=== PATIENT | male | born 1935 | race Caucasian/White ===

== ENCOUNTER 2023-07-14 13:42 | Inpatient (IN) | payer MEDICARE ==
[2023-07-14] MEDS ORDERED: SODIUM CHLORIDE 0.9% 1,000 ML IV STA ×2 (14:22→15:56)
[2023-07-14] MEDS ORDERED: amLODIPine 5 MG TAB PO STA (14:23)
--- NOTE | 2023-07-14 14:25 | ED ---
General Adult HPI - General Chief complaint: Weakness Stated complaint: Weakness Time Seen by Provider: 07/14/23 14:04 Source: patient, RN/MD, RN notes reviewed Mode of arrival: EMS Limitations: altered mental status - History of Present Illness Initial comments: Patient is a pleasant 87-year-old male presenting to the emergency department with weakness. Patient has been becoming more weak over the past several weeks, especially the past couple of days. Patient is no longer able to ambulate or even stand with assistance. Patient has been with decreased oral intake and decrease responsiveness. Patient was at a different emergency department a c ouple of days ago and had high blood pressure however was discharged. Review of Systems ROS Statement: Those systems with pertinent positive or pertinent negative responses have been documented in the HPI. ROS Other: All systems not noted in ROS Statement are negative. Constitutional: Denies: fever Eyes: Denies: eye pain Endocrine: Reports: fatigue Gastrointestinal: Denies: abdominal pain Neurological: Reports: weakness. Denies: headache Past Medical History Past Medical History: No Reported History History of Any Multi-Drug Resistant Organisms: None Reported Past Surgical History: No Surgical Hx Reported Past Psychological History: No Psychological Hx Reported Smoking Status: Unknown if ever smoked Past Alcohol Use History: None Reported Past Drug Use History: None Reported General Exam Limitations: altered mental status General appearance: alert, in no apparent distress Head exam: Present: atraumatic Eye exam: Present: normal appearance ENT exam: Present: mucous membranes dry Neck exam: Present: normal inspection Respiratory exam: Present: normal lung sounds bilaterally Cardiovascular Exam: Present: regular rate, normal rhythm GI/Abdominal exam: Present: soft. Absent: tenderness Extremities exam: Present: pedal edema. Absent: calf tenderness Neurological exam: Present: alert Expanded Neurological exam: Present: protecting the airway Patient oriented to: Present: person Motor strength exam: RUE: 5, LUE: 5, RLE: 3, LLE: 3 Eye Response: (4) open spontaneously Motor Response: (6) obeys commands Verbal Response: (4) confused conversation Psychiatric exam: Present: flat affect Skin exam: Present: other (Erythema forehead which family states is related to skin cancer) Course Vital Signs 07/14/23 07/14/23 13:57 14:56 Temperature 98.1 F Pulse Rate 84 79 Respiratory 18 18 Rate Blood Pressure 205/107 190/90 O2 Sat by Pulse 97 99 Oximetry EKG Findings - EKG Results: EKG: interpreted by ERMD (Right axis. Q waves V1. Nonspecific T waves.), sinus rhythm Medical Decision Making - Medical Decision Making Was pt. sent in by a medical professional or institution (, SHANNON, EXCHANGE CLERK, urgent care, hospital, or correction...) When possible be specific @ -Patient was sent in by Dr. Bernstein Did you speak to anyone other than the patient for history (EMS, parent, family, police, friend...)? What history was obtained from this source @ -Family is present and helps provide history as patient is a poor historian Did you review nursing and triage notes (agree or disagree)? Why? @ -I reviewed and agree with nursing and triage notes Were old charts reviewed (outside hosp., previous admission, EMS record, old EKG, old radiological studies, urgent care reports/EKG's, correction records)? Report findings @ -No old charts were reviewed Differential Diagnosis (chest pain, altered mental status, abdominal pain women, abdominal pain men, vaginal bleeding, weakness, fever, dyspnea, syncope, headache, dizziness, GI bleed, back pain, seizure, CVA, palpatations, mental health, musculoskeletal)? @ -Differential Weakness: Hypoglycemia, shock, sepsis, hyponatremia, anemia, infection, PA, ETOH, adverse medicine reaction, overdose, stroke, this is not meant to be an all-inclusive list. EKG interpreted by me (3pts min.). @ -As above X-rays interpreted by me (1pt min.). @ -Chest x-ray shows postoperative changes. No acute process CT interpreted by me (1pt min.). @ -CT brain with atrophy U/S interpreted by me (1pt. min.). @ -None done What testing was considered but not performed or refused? (CT, X-rays, U/S, labs)? Why? @ -None What meds were considered but not given or refused? Why? @ -None Did you discuss the management of the patient with other professionals (maranda clifton i.e. , SHANNON, EXCHANGE CLERK, lab, RT, psych nurse, social service coordinator, snow groomer, teacher, electorate officer, continuous pillowcase cutter)? Give summary @ -Case was discussed with Dr. Salazar, who will admit, Dr. Bernstein Was smoking cessation discussed for >3mins.? @ -No Was critical care preformed (if so, how long)? @ -No Were there social determinants of health that impacted care today? How? (Homelessness, low income, unemployed, alcoholism, drug addiction, transportation, low edu. Level, literacy, decrease access to med. care, senior living, rehab)? @ -No Was there de-escalation of care discussed even if they declined (Discuss DNR or withdrawal of care, Hospice)? DNR status @ -No What co-morbidities impacted this encounter? (DM, HTN, Smoking, COPD, CAD, Cancer, CVA, ARF, Chemo, Hep., AIDS, mental health diagnosis, sleep apnea, morbid obesity)? @ -None Was patient admitted / discharged? Hospital course, mention meds given and route, prescriptions, significant lab abnormalities, going to OR and other pertinent info. @ -Patient and family are made aware of plan. Patient will be admitted with IV fluids. Admission orders written. Undiagnosed new problem with uncertain prognosis? @ -No Drug Therapy requiring intensive monitoring for toxicity (Heparin, Nitro, Insulin, Cardizem)? @ -No Were any procedures done? @ -No Diagnosis/symptom? @ -Weakness, dehydration Acute, or Chronic, or Acute on Chronic? @ -Acute, acute Uncomplicated (without systemic symptoms) or Complicated (systemic symptoms)? @ -default Side effects of treatment? @ -No Exacerbation, Progression, or Severe Exacerbation? @ -No Poses a threat to life or bodily function? How? (Chest pain, USA, PA, pneumonia, PE, COPD, DKA, ARF, appy, cholecystitis, CVA, Diverticulitis, Homicidal, Suicidal, threat to staff... and all critical care pts) @ -No - Lab Data Result diagrams: 07/14/23 14:42 07/14/23 14:42 Lab Results 07/14/23 07/14/23 07/14/23 Range/Units 14:42 14:42 14:42 WBC 10.0 (3.8-10.6) k/uL RBC 4.08 L (4.30-5.90) m/uL Hgb 13.7 (13.0-17.5) gm/dL Hct 40.1 (39.0-53.0) % MCV 98.4 (80.0-100.0) fL MCH 33.7 (25.0-35.0) pg MCHC 34.2 (31.0-37.0) g/dL RDW 12.4 (11.5-15.5) % Plt Count 180 (150-450) k/uL MPV 8.4 Neutrophils % 83 % Lymphocytes % 9 % Monocytes % 7 % Eosinophils % 1 % Basophils % 0 % Neutrophils # 8.2 H (1.3-7.7) k/uL Lymphocytes # 0.9 L (1.0-4.8) k/uL Monocytes # 0.7 (0-1.0) k/uL Eosinophils # 0.1 (0-0.7) k/uL Basophils # 0.0 (0-0.2) k/uL PT 10.6 (10.0-12.5) sec INR 1.0 (<1.2) APTT 25.5 (22.0-30.0) sec Sodium 139 (137-145) mmol/L Potassium 3.9 (3.5-5.1) mmol/L Chloride 102 (98-107) mmol/L Carbon Dioxide 22 (22-30) mmol/L Anion Gap 15 mmol/L BUN 28 H (9-20) mg/dL Creatinine 1.05 (0.66-1.25) mg/dL Est GFR (CKD-EPI)AfAm 73 (>60 ml/min/1.73 sqM) Est GFR (CKD-EPI)NonAf 64 (>60 ml/min/1.73 sqM) Glucose 307 H (74-99) mg/dL Calcium 9.6 (8.4-10.2) mg/dL Magnesium 1.6 (1.6-2.3) mg/dL Total Bilirubin 0.9 (0.2-1.3) mg/dL AST 28 (17-59) U/L ALT 19 (4-49) U/L Alkaline Phosphatase 107 (38-126) U/L Troponin I (0.000-0.034) ng/mL Total Protein 7.7 (6.3-8.2) g/dL Albumin 4.4 (3.5-5.0) g/dL TSH 3.100 (0.465-4.680) mIU/L Free T4 1.29 (0.78-2.19) ng/dL Free T3 pg/mL 3.2 (2.8-5.3) pg/ml 07/14/23 Range/Units 14:42 WBC (3.8-10.6) k/uL RBC (4.30-5.90) m/uL Hgb (13.0-17.5) gm/dL Hct (39.0-53.0) % MCV (80.0-100.0) fL MCH (25.0-35.0) pg MCHC (31.0-37.0) g/dL RDW (11.5-15.5) % Plt Count (150-450) k/uL MPV Neutrophils % % Lymphocytes % % Monocytes % % Eosinophils % % Basophils % % Neutrophils # (1.3-7.7) k/uL Lymphocytes # (1.0-4.8) k/uL Monocytes # (0-1.0) k/uL Eosinophils # (0-0.7) k/uL Basophils # (0-0.2) k/uL PT (10.0-12.5) sec INR (<1.2) APTT (22.0-30.0) sec Sodium (137-145) mmol/L Potassium (3.5-5.1) mmol/L Chloride (98-107) mmol/L Carbon Dioxide (22-30) mmol/L Anion Gap mmol/L BUN (9-20) mg/dL Creatinine (0.66-1.25) mg/dL Est GFR (CKD-EPI)AfAm (>60 ml/min/1.73 sqM) Est GFR (CKD-EPI)NonAf (>60 ml/min/1.73 sqM) Glucose (74-99) mg/dL Calcium (8.4-10.2) mg/dL Magnesium (1.6-2.3) mg/dL Total Bilirubin (0.2-1.3) mg/dL AST (17-59) U/L ALT (4-49) U/L Alkaline Phosphatase (38-126) U/L Troponin I 0.045 H* (0.000-0.034) ng/mL Total Protein (6.3-8.2) g/dL Albumin (3.5-5.0) g/dL TSH (0.465-4.680) mIU/L Free T4 (0.78-2.19) ng/dL Free T3 pg/mL (2.8-5.3) pg/ml Disposition Clinical Impression: Dehydration Disposition: ADMITTED IP TO THIS HOSP Is patient prescribed a controlled substance at d/c from ED?: No Referrals: None,Stated [REFERRING] - 1-2 days Time of Disposition: 16:47
[2023-07-14 14:49] LABS: Basophils % (A) 0 %; Eosinophils # (A) 0.1 k/uL (0-0.7); Eosinophils % (A) 1 %; HCT 40.1 % (39.0-53.0); HGB 13.7 gm/dL (13.0-17.5); Lymphocytes # (A) 0.9 k/uL (1.0-4.8); Lymphocytes % (A) 9 %; MCH 33.7 pg (25.0-35.0); MCHC 34.2 g/dL (31.0-37.0); MCV 98.4 fL (80.0-100.0); Mean Platelet Volume 8.4; Monocytes # (A) 0.7 k/uL (0-1.0); Monocytes % (A) 7 %; Neutrophils # (A) 8.2 k/uL (1.3-7.7); Neutrophils % (A) 83 %; Platelet Count 180 k/uL (150-450); RBC 4.08 m/uL (4.30-5.90); RDW 12.4 % (11.5-15.5)
[2023-07-14 14:59] LABS: ALT 19 U/L (4-49); AST 28 U/L (17-59); African American GFR (CKD) 73 (>60 ml/min/1.73 sqM); Albumin 4.4 g/dL (3.5-5.0); Alkaline Phosphatase 107 U/L (38-126); Anion Gap 15 mmol/L; Blood Urea Nitrogen 28 mg/dL (9-20); Calcium 9.6 mg/dL (8.4-10.2); Carbon Dioxide 22 mmol/L (22-30); Chloride 102 mmol/L (98-107); Glucose 307 mg/dL (74-99); Magnesium 1.6 mg/dL (1.6-2.3); Non-African American GFR(CKD) 64 (>60 ml/min/1.73 sqM); Partial Thromboplastin Time 25.5 sec (22.0-30.0); Potassium 3.9 mmol/L (3.5-5.1); Prothrombin Time 10.6 sec (10.0-12.5); Sodium 139 mmol/L (137-145); Total Bilirubin 0.9 mg/dL (0.2-1.3); Total Protein 7.7 g/dL (6.3-8.2)
[2023-07-14 15:16] LABS: T4, Free (Free Thyroxine) 1.29 ng/dL (0.78-2.19)
[2023-07-14] MEDS ORDERED: DEXTROSE 50% SYRINGE 50 ML IVP PRN ×2 (15:27)
--- NOTE | 2023-07-14 15:48 | XR ---
EXAMINATION TYPE: XR chest 2V DATE OF EXAM: 07/14/2023 COMPARISON: 07/14/2023 HISTORY: 87-year-old male with weakness, confusion, altered mental status TECHNIQUE: AP and lateral views FINDINGS: Median sternotomy wires and post-CABG clips. Heart borderline enlarged. No consolidation or pleural e ffusion. IMPRESSION: Borderline cardiomegaly. Post-CABG changes. No definite acute process.
--- NOTE | 2023-07-14 16:04 | CT ---
EXAMINATION TYPE: CT brain wo con DATE OF EXAM: 07/14/2023 COMPARISON: None HISTORY: ams CT DLP: 1114.6 mGycm Automated exposure control for dose reduction was used. FINDINGS: Ventricles, basal cisterns and sulci over convexities are moderately enlarged consistent with moderat e generalized atrophy. There is moderate diffuse decreased density in the periventricular white matte r consistent with chronic ischemic white matter demyelination. There is no mass effect or shift of midline structures. There is no acute intra or extra-axial hemorrhage. The posterior fossa including the brainstem, fourth ventricle and cerebellar pontine angles are gross ly normal. The intraorbital contents appear normal and symmetric. Visualized paranasal sinuses and mastoid air cells are well aerated. The calvarium is intact. IMPRESSION: 1. No acute bleed or mass effect. 2. Moderate generalized atrophy and moderate chronic ischemic white matter demyelination.
[2023-07-14] MEDS: hydrALAZINE HCL 20 MG/ML 1 ML VIAL IVP PRN (16:12)
[2023-07-14] MEDS ORDERED: NALOXONE 0.4 MG/ML 1 ML VIAL IV PRN (16:49)
[2023-07-14] MEDS: INSULIN ASPART (NovoLOG) 100 UNIT/ML VIAL SQ SCH ×3 (16:57→20:46)
[2023-07-14] MEDS: SODIUM CHLORIDE 0.9% 1,000 ML IV SCH (16:58)
[2023-07-14 17:08] LABS: Appearance,Urine Clear (Clear); Bilirubin,Urine Negative (Negative); Blood,Urine Small (Negative); Color,Urine Colorless; Glucose,Urine (UA) 2+ (Negative); Ketones,Urine Negative (Negative); Leukocyte Esterase,Urine Negative (Negative); Nitrite,Urine Negative (Negative); Protein,Urine 1+ (Negative); RBC,Urine 5 /hpf (0-5); Specific Gravity,Urine 1.012 (1.001-1.035); Urobilinogen,Urine <2.0 mg/dL (<2.0); WBC,Urine 2 /hpf (0-5)
[2023-07-14 17:09] LABS: Glucose,Whole Blood 185 mg/dL (70-110)
--- NOTE | 2023-07-14 19:22 | US ---
EXAMINATION TYPE: US carotid duplex BILAT DATE OF EXAM: 07/14/2023 COMPARISON: NONE CLINICAL INDICATION: Male, 87 years old with history of stroke; Patient not able to get words out, he adaches, and tremors TECHNIQUE: Carotid duplex ultrasound examination. Indirect Doppler criteria was utilized. FINDINGS: EXAM MEASUREMENTS: RIGHT: Peak Systolic Velocity (PSV) cm/sec ----- Right CCA: 60 ----- Right ICA: 82 ----- Right ECA: 155 ICA/CCA ratio: 1.4 RIGHT: End Diastole cm/sec ----- Right CCA: 7 ----- Right ICA: 9 ----- Right ECA: 16 LEFT: Peak Systolic Velocity (PSV) cm/sec ----- Left CCA: 60 ----- Left ICA: 83 ----- Left ECA: 88 ICA/CCA ratio: 1.4 LEFT: End Diastole cm/sec ----- Left CCA: 11 ----- Left ICA: 83 ----- Left ECA: 7 VERTEBRALS (direction of flow): Right Vertebral: Antegrade Left Vertebral: Antegrade Rhythm: Normal MANAGER SALES NOTES: Some calcified plaque at bilateral bulbs, increased velocity within the right ECA, and no intimal thickening noted IMPRESSION: 1. Calcified plaquing within the carotid bulbs. No significant flow-limiting stenosis bilateral inter nal carotid arteries. Criteria for Assigning % of Stenosis / Diameter reduction (Estimation based on the indirect measurements of the internal carotid artery velocities (ICA PSV). 1. Normal (no stenosis)=ICA PSV < 125 cm/s: ratio < 2.0: ICA EDV<40 cm/s. 2. Less than 50% stenosis=ICA PSV < 125 cm/s: ratio < 2.0: ICA EDV<40 cm/s. 3. 50 to 69% stenosis=ICA PSV of 125 to 230 cm/s: ration 2.0 ? 4.0: ICA EDV 40-100 cm/s. 4. Greater than 70% stenosis to near occlusion= ICA PSV > 230 cm/s: ratio > 4.0: ICA EDV > 100 cm/s. 5. Near occlusion= ICA PSV velocities may be low or undetectable: variable ratio and ICA EDV. 6. Total occlusion=unable to detect flow.
[2023-07-14 20:46] LABS: Glucose,Whole Blood 132 mg/dL (70-110)
[2023-07-14] MEDS: HEPARIN SODIUM,PORCINE 5,000 UNIT/ML 1 ML VIAL SQ SCH (20:53)
[2023-07-14] MEDS: FAMOTIDINE 20 MG TAB PO SCH (20:53)
--- NOTE | 2023-07-14 23:05 | HP ---
HISTORY AND PHYSICAL CHIEF COMPLAINT: Weakness and confusion. HISTORY OF PRESENT ILLNESS: This is an 87-year-old gentleman with no significant past medical history, was being followed by Dr. Teixeira in the outpatient setting. The patient apparently according to the family. The patient had some weakness and confusion, and the patient was taken to [facility] a couple of days ago and blood pressure was found to be elevated, but the patient was sent back home. Currently, the patient continues to be confused and I discussed the case at length with Dr. Teixeira. The patient also had some leg swelling. The patient had multiple falls. The blood pressure was 151/90, and currently the blood pressure is 205/107. The patient was admitted for further evaluation and treatment. The patient is confused. The patient had some skin lesions, skin cancer, and unable to answer the questions. Most of the history is taken by discussion with the family at the bedside and as well as ER physician as well as Dr. Teixeira over the phone. There is no history of any fever, rigors, or chills. The patient also had some abdominal distention and the possibility of Nephrology and Urology consultation has been mentioned to them by the [facility] ER apparently. The basic labs showed normal creatinine, glucose 307. Troponin was found to be elevated at 0.045. PAST MEDICAL HISTORY: No history of any cardiorespiratory illness except skin cancer. MEDICATIONS: List is not available. ALLERGIES: List is not available. FAMILY HISTORY: No history of heart disease or strokes in the family. SOCIAL HISTORY: Could not be taken because of change in mental status. REVIEW OF SYSTEMS: Could not be taken because of change in mental status. PHYSICAL EXAMINATION: VITAL SIGNS: Pulse 84, blood pressure 205/107, respirations 18. HEENT: Conjunctivae normal. NECK: No jugular venous distention. CARDIOVASCULAR: S1, S2 muffled. RESPIRATIONS: Breath sounds diminished at the bases. A few scattered rhonchi and crackles. ABDOMEN: Soft, nontender. LEGS: No edema. NERVOUS SYSTEM: Diffusely weak. SKIN: Dry and some erythema also present. LABORATORY DATA: Reviewed. ASSESSMENT: 1. Change in mental status, for evaluation, rule out acute stroke, rule out metabolic encephalopathy or sepsis. 2. Accelerated hypertension and hypertensive urgency. 3. Troponin 0.045. 4. Diabetes mellitus, type 2 new onset. 5. Rule out dementia. 6. Gait dysfunction. 7. History of skin cancer. RECOMMENDATIONS AND DISCUSSION: This is an 87-year-old gentleman, who presented with multiple complex medical issues. At this time, I recommend to continue the current medication. I recommend baseline workup including CT of the brain. I will recommend blood pressure control, cultures. Monitor blood sugars closely. PT/OT evaluation, possible ECF rehab. I will also order a sedimentation rate and CRP. I will also recommend cardiology consultation, a 2D echo and full cardiac workup also. Discussed at length with family at the bedside. Further recommendations to follow. MMODL / IJN: [id number] / MICHAEL
[2023-07-15 06:54] LABS: Glucose,Whole Blood 111 mg/dL (70-110)
[2023-07-15] MEDS: INSULIN ASPART (NovoLOG) 100 UNIT/ML VIAL SQ SCH ×4 (07:10→20:23)
[2023-07-15] MEDS: hydrALAZINE HCL 20 MG/ML 1 ML VIAL IVP PRN (07:11)
[2023-07-15] MEDS: SODIUM CHLORIDE 0.9% 1,000 ML IV SCH ×2 (07:34→20:14)
[2023-07-15 08:39] LABS: ALT 14 U/L (4-49); AST 23 U/L (17-59); African American GFR (CKD) 73 (>60 ml/min/1.73 sqM); Albumin 3.9 g/dL (3.5-5.0); Alkaline Phosphatase 97 U/L (38-126); Anion Gap 15 mmol/L; Blood Urea Nitrogen 24 mg/dL (9-20); Calcium 9.4 mg/dL (8.4-10.2); Carbon Dioxide 23 mmol/L (22-30); Chloride 104 mmol/L (98-107); Glucose 127 mg/dL (74-99); Non-African American GFR(CKD) 64 (>60 ml/min/1.73 sqM); Potassium 3.5 mmol/L (3.5-5.1); Sodium 142 mmol/L (137-145); Total Bilirubin 0.9 mg/dL (0.2-1.3); Total Protein 7.1 g/dL (6.3-8.2)
[2023-07-15 08:46] LABS: Basophils % (A) 0 %; Eosinophils # (A) 0.1 k/uL (0-0.7); Eosinophils % (A) 1 %; HCT 39.4 % (39.0-53.0); HGB 13.1 gm/dL (13.0-17.5); Lymphocytes # (A) 1.5 k/uL (1.0-4.8); Lymphocytes % (A) 17 %; MCHC 33.4 g/dL (31.0-37.0); MCV 98.7 fL (80.0-100.0); Mean Platelet Volume 9.3; Monocytes # (A) 0.8 k/uL (0-1.0); Monocytes % (A) 9 %; Neutrophils # (A) 6.6 k/uL (1.3-7.7); Neutrophils % (A) 72 %; Platelet Count 153 k/uL (150-450); RBC 3.99 m/uL (4.30-5.90); RDW 12.7 % (11.5-15.5); WBC 9.2 k/uL (3.8-10.6)
[2023-07-15] MEDS: ASPIRIN 81 MG PO SCH (10:09)
[2023-07-15] MEDS: LOSARTAN 50 MG TAB PO SCH (10:10)
[2023-07-15] MEDS: amLODIPine 5 MG TAB PO SCH (10:10)
[2023-07-15] MEDS: atenoloL 50 MG TAB PO SCH (10:10)
[2023-07-15] MEDS: HEPARIN SODIUM,PORCINE 5,000 UNIT/ML 1 ML VIAL SQ SCH ×2 (10:10→20:13)
[2023-07-15 11:21] LABS: Glucose,Whole Blood 286 mg/dL (70-110)
--- NOTE | 2023-07-15 11:32 | P.CRDCN ---
History of Present Illness History of present illness: HISTORY OF PRESENT ILLNESS: This is a 87-year-old male with a past medical history significant for coronary artery disease with previous CABG, hypertension, and hyperlipidemia. Patient follows in the office with Dr. Tan. We have been asked to see the patient in consultation for abnormal troponins. Patient examined at the bedside. Patient is hard of hearing. Patient's family is at the bedside and providing majority of the history. They state the patient is usually independent and lives alone in ambient with a walker. Daughter states over the past few weeks he has significantly deteriorated. She reports that he has had significant weakness and has been unable to ambulate at home. She also reports that he has not been eating well at home. The patient currently denies any chest pain or pressure. He denies any shortness of breath. Patient's family states they're looking into subacute rehab at the time of discharge. Patient's blood pressure was s ignificantly elevated upon admission with a systolic around 200. The patient's daughter states he was recently hospitalized at [facility] and was hypertensive at that time but no changes were made to his medication regimen. Blood pressure this morning remains elevated with a recent reading of 170/96. His home and hypertensive medications have not been resumed at the time of examination. However, he has been started on amlodipine per primary medicine. * EKG reveals sinus mechanism with nonspecific ST-T wave changes. * Chest xray borderline cardiomegaly. Post CABG changes. No definite acute process. * Laboratory data: Troponin 0.045. 0.048. 0.051. * Current home cardiac medications include simvastatin 40 mg at night, aspirin 81 mg daily, atenolol 50 mg daily, losartan 100 mg daily * Most recent echocardiogram obtained in April 2023 revealed ejection fraction 55%, trace aortic regurgitation, moderate mitral regurgitation, [id number] tricuspid regurgitation REVIEW OF SYSTEMS: At the time of my exam: CONSTITUTIONAL: Denies fever or chills. HEENT: Denies blurred vision, vision changes, or eye pain. Denies hemoptysis CARDIOVASCULAR: Denies chest pain. Denies orthopnea. Denies PND. Denies palpitations RESPIRATORY: Denies shortness of breath. GASTROINTESTINAL: Denies abdominal pain. Denies nausea or vomiting. HEMATOLOGIC: Denies bleeding disorders. GENITOURINARY: Denies any blood in urine. SKIN: Denies pruitis. Denies rash. PHYSICAL EXAM: VITAL SIGNS: Reviewed. GENERAL: Well-developed in no acute distress. HEENT: Head is normocephalic. Pupils are equal, round. Sclerae anicteric. Mucous membranes of the mouth are moist. Neck supple. No JVD or thyromegaly LUNGS: Respirations even and unlabored. Lungs essentially clear to auscultation bilaterally. HEART: Regular rate and rhythm. S1 and S2 heard. ABDOMEN: Soft. Nondistended. Nontender. EXTREMITIES: Normal range of motion. No clubbing or cyanosis. Peripheral pulses intact. No lower extremity edema NEUROLOGIC: Awake and alert. Oriented x 3. ASSESSMENT: Generalized weakness and debility Decreased oral intake Hypertensive urgency, improving Abnormal troponins, flat, likely secondary to uncontrolled blood pressure, no evidence of acute coronary syndrome Coronary artery disease with previous CABG History of hypertension History of hyperlipidemia PLAN: An acute coronary event has been ruled out Resume home cardiac medications including aspirin, atenolol, and losartan Patient has been started on amlodipine per primary medicine Continue to monitor blood pressure Obtain 2-D echo to assess cardiac structure and function Further recommendations pending patient's course Nurse practitioner note has been reviewed by physician. Signing provider agrees with the documented findings, assessment, and plan of care. Past Medical History Past Medical History: No Reported History History of Any Multi-Drug Resistant Organisms: None Reported Past Surgical History: No Surgical Hx Reported Past Psychological History: No Psychological Hx Reported Smoking Status: Never smoker, Unknown if ever smoked Past Alcohol Use History: None Reported Past Drug Use History: None Reported - Past Family History Mother Family Medical History: Congestive Heart Failure (CHF) Additional Family Medical History / Comment(s): CABG Sister(s) Family Medical History: Cancer, Congestive Heart Failure (CHF) Father Family Medical History: Myocardial Infarction (NE) Additional Family Medical History / Comment(s): of NE Medications and Allergies Home Medications Medication Instructions Recorded Confirmed Type Aspirin EC [Ecotrin Low Dose] 81 mg PO DAILY 07/14/23 07/14/23 History Bifidobacterium Infantis [Align] 4 mg PO DAILY 07/14/23 07/14/23 History Cephalexin [Keflex] 500 mg PO BID 07/14/23 07/14/23 History Famotidine 20 mg PO BID 07/14/23 07/14/23 History Losartan Potassium 100 mg PO DAILY 07/14/23 07/14/23 History Primidone [Mysoline] 100 mg PO DAILY 07/14/23 07/14/23 History Psyllium Husk [Fiber Capsule] 0.4 gm PO HS 07/14/23 07/14/23 History Simvastatin [Zocor] 40 mg PO HS 07/14/23 07/14/23 History atenoloL [Tenormin] 50 mg PO DAILY 07/14/23 07/14/23 History fluorouraciL [Efudex] 1 applic TOPICAL BID 07/14/23 07/14/23 History Allergies Allergy/AdvReac Type Severity Reaction Status Date / Time No Known Allergies Allergy Verified 07/14/23 18:23 Physical Exam Vitals: Vital Signs Temp Pulse Pulse Resp BP BP Pulse Ox 07/15/23 08:07 78 18 170/96 98 07/15/23 04:00 97.2 F L 81 16 159/79 94 L 07/15/23 02:00 68 16 07/15/23 00:00 97.8 F 68 16 136/77 95 07/14/23 20:00 98.1 F 74 18 160/85 99 07/14/23 16:55 82 18 159/88 94 L 07/14/23 16:50 153/95 07/14/23 14:56 79 18 190/90 99 07/14/23 13:57 98.1 F 84 18 205/107 97 Intake and Output 07/14/23 07/15/23 07/15/23 22:59 06:59 14:59 Other: Voiding Method Incontinent Incontinent # Voids 2 1 Weight 90.718 kg Results 07/15/23 07:49 07/15/23 07:49 Cardiac Enzymes 07/14/23 07/14/23 07/14/23 Range/Units 14:42 14:42 18:27 AST 28 (17-59) U/L Troponin I 0.045 H* 0.048 H* (0.000-0.034) ng/mL 07/14/23 07/15/23 Range/Units 20:55 07:49 AST 23 (17-59) U/L Troponin I 0.051 H* (0.000-0.034) ng/mL Coagulation 07/14/23 Range/Units 14:42 PT 10.6 (10.0-12.5) sec APTT 25.5 (22.0-30.0) sec CBC 07/14/23 07/15/23 Range/Units 14:42 07:49 WBC 10.0 9.2 (3.8-10.6) k/uL RBC 4.08 L 3.99 L (4.30-5.90) m/uL Hgb 13.7 13.1 (13.0-17.5) gm/dL Hct 40.1 39.4 (39.0-53.0) % Plt Count 180 153 (150-450) k/uL Comprehensive Metabolic Panel 07/14/23 07/15/23 Range/Units 14:42 07:49 Sodium 139 142 (137-145) mmol/L Potassium 3.9 3.5 (3.5-5.1) mmol/L Chloride 102 104 (98-107) mmol/L Carbon Dioxide 22 23 (22-30) mmol/L BUN 28 H 24 H (9-20) mg/dL Creatinine 1.05 1.05 (0.66-1.25) mg/dL Glucose 307 H 127 H (74-99) mg/dL Calcium 9.6 9.4 (8.4-10.2) mg/dL AST 28 23 (17-59) U/L ALT 19 14 (4-49) U/L Alkaline Phosphatase 107 97 (38-126) U/L Total Protein 7.7 7.1 (6.3-8.2) g/dL Albumin 4.4 3.9 (3.5-5.0) g/dL Current Medications Generic Name Dose Route Start Last Admin Trade Name Omarq PRN Reason Stop Dose Admin Amlodipine Besylate 5 mg 07/15/23 09:00 07/15/23 10:10 Amlodipine 5 Mg Tab PO 5 mg DAILY ERNESTO Administration Aspirin 81 mg 07/15/23 09:30 07/15/23 10:09 Aspirin 81 Mg PO 81 mg DAILY ERNESTO Administration Atenolol 50 mg 07/15/23 09:30 07/15/23 10:10 Atenolol 50 Mg Tab PO 50 mg DAILY ERNESTO Administration Atorvastatin Calcium 20 mg 07/15/23 21:00 Atorvastatin 20 Mg Tab PO HS ERNESTO Dextrose/Water 25 ml 07/14/23 15:27 Dextrose 50% Syringe 50 Ml IVP PER PROTOCOL PRN Hypoglycemia Protocol Dextrose/Water 50 ml 07/14/23 15:27 Dextrose 50% Syringe 50 Ml IVP PER PROTOCOL PRN Hypoglycemia Protocol Famotidine 20 mg 07/14/23 21:00 07/14/23 20:53 Famotidine 20 Mg Tab PO 20 mg HS ERNESTO Administration Heparin Sodium (Porcine) 5,000 unit 07/14/23 21:00 07/15/23 10:10 Heparin Sodium,Porcine 5,000 Unit/Ml 1 Ml Vial SQ 5,000 unit Q12HR ERNESTO Administration Sodium Chloride 1,000 mls @ 75 mls/hr 07/14/23 17:00 07/15/23 07:34 Saline 0.9% IV 75 mls/hr .[id number] ERNESTO Administration Insulin Aspart 0 unit 07/14/23 17:30 07/15/23 07:10 Insulin Aspart (Novolog) 100 Unit/Ml Vial SQ Not Given ACHS ERNESTO Protocol Losartan Potassium 100 mg 07/15/23 09:30 07/15/23 10:10 Losartan 50 Mg Tab PO 100 mg DAILY ERNESTO Administration Naloxone HCl 0.2 mg 07/14/23 16:49 Naloxone 0.4 Mg/Ml 1 Ml Vial IV Q2M PRN Opioid Reversal Intake and Output 07/14/23 07/15/23 07/15/23 22:59 06:59 14:59 Other: Voiding Method Incontinent Incontinent # Voids 2 1 Weight 90.718 kg 07/15/23 07:49 07/15/23 07:49
[2023-07-15 13:36] VITALS: BMI 39.0
[2023-07-15 16:17] LABS: Glucose,Whole Blood 200 mg/dL (70-110)
[2023-07-15] MEDS: LIDOCAINE 4% PATCH TOPICAL SCH (17:07)
[2023-07-15] MEDS: PRIMIDONE 50 MG TAB PO SCH (17:07)
[2023-07-15] MEDS: NON FORMULARY DRUG (Fluorouracil [Efudex] 40 GM Cream..G.) TOPICAL SCH (17:13)
--- NOTE | 2023-07-15 20:08 | PN ---
PROGRESS NOTE DATE OF SERVICE: 07/15/2023 SUBJECTIVE: This 87-year-old gentleman admitted with significant change in mental status and confusion, also had hypertensive encephalopathy. Blood glucose also found to be elevated, troponin 0.051. The patient is slightly more oriented. Today, the patient had multiple workups including carotid Doppler, which showed calcified plaques. CT of the brain, atrophy and chest x-ray was borderline. The patient is being closely monitored. PAST MEDICAL HISTORY: Could not be taken as the patient is confused. REVIEW OF SYSTEMS: Could not be taken as the patient is confused. CURRENT MEDICATIONS: Reviewed include Tenormin, dose and rest of medications noted. PHYSICAL EXAMINATION: VITAL SIGNS: Pulse 81, blood pressure 159/70, and respirations 16. HEENT: Conjunctivae normal. NECK: No jugular venous distention CARDIOVASCULAR: S1, S2 muffled. RESPIRATIONS: Diminished at the bases. ABDOMEN: Soft. NERVOUS SYSTEM: Diffusely weak. LABORATORY DATA: Noted. ASSESSMENT: 1. Change in mental status and possibly acute encephalopathy and hypertensive encephalopathy. 2. Accelerated hypertension with hypertensive urgency. 3. Possible cellulitis. 4. Troponin 0.045. 5. Diabetes mellitus type 2, new onset. 6. Possible dementia. 7. Gait dysfunction. 8. History of skin cancer. RECOMMENDATION AND DISCUSSION: This 87-year-old gentleman presented with multiple complex medical issues, we will monitor the patient closely. I would recommend empiric antibiotics. Closely follow with Cardiology. I would also recommend Infectious Disease evaluation as well as the neurology evaluation also and we will continue to monitor. PT, OT evaluation and possible ECF rehab. Guarded prognosis. Further recommendations to follow. See orders for details. MMODL / IJN: [id number] /
[2023-07-15] MEDS: PSYLLIUM HUSK 100% 6 GM PACKET PO SCH (20:11)
[2023-07-15] MEDS: FAMOTIDINE 20 MG TAB PO SCH (20:11)
[2023-07-15] MEDS: ATORVASTATIN 20 MG TAB PO SCH (20:11)
[2023-07-15 20:16] LABS: Glucose,Whole Blood 120 mg/dL (70-110)
[2023-07-16] MEDS: NON FORMULARY DRUG (Fluorouracil [Efudex] 40 GM Cream..G.) TOPICAL SCH ×3 (01:49→21:22)
[2023-07-16 06:21] LABS: Glucose,Whole Blood 128 mg/dL (70-110)
[2023-07-16] MEDS: INSULIN ASPART (NovoLOG) 100 UNIT/ML VIAL SQ SCH ×4 (06:24→21:21)
--- NOTE | 2023-07-16 08:30 | P.PN ---
Subjective Progress Note Date: 07/16/23 Principal diagnosis: The patient is a pleasant 87-year-old gentleman with coronary artery disease and hypertension and dyslipidemia was admitted to the hospital was hypertension em ergency. He was seen and evaluated this morning. He continues to be hypertensive. Currently is on high-dose losartan which is maximum dose and also he is on atenolol. I'm going to add hydrocortisone to the current medical regimen his kidney function are within normal limits. Beside that he has been experiencing dysuria. I asked for a urology consult to rule out any obstructive uropathy and he might benefit from medications for that. No pain in the chest and no shortness of breath. He is experiencing mild headache likely secondary to hypertension. The examination is remarkable for distant heart sounds with clear breathing sounds bilaterally and no lower extremity edema noted Assessment Hypertension emergency Coronary artery disease Multiple comorbid conditions Plan Add hydrochlorothiazide to the current medical regimen Rule out obstructive uropathy Consider ruling out persistent hypertension if the pressure remains elevated Consider replacing atenolol with carvedilol as well Follow-up with the patient Objective - Vital Signs Vital signs: Vital Signs Temp 98.4 F 07/15/23 16:00 Pulse 77 07/16/23 04:18 Resp 18 07/16/23 04:18 BP 194/93 07/16/23 04:18 Pulse Ox 98 07/16/23 04:18 FiO2 Intake & Output 07/15/23 07/16/23 07/16/23 18:59 06:59 18:59 Output Total 500 Balance -500 Weight 90.718 kg Output: Urine 500 Other: Voiding Method Incontinent Incontinent # Voids 1 - Labs CBC & Chem 7: 07/15/23 07:49 07/15/23 07:49 Labs: Abnormal Lab Results - Last 24 Hours (Table) 07/15/23 07/15/23 07/15/23 Range/Units 07:49 07:49 11:19 RBC 3.99 L (4.30-5.90) m/uL BUN 24 H (9-20) mg/dL Glucose 127 H (74-99) mg/dL POC Glucose (mg/dL) 286 H (70-110) mg/dL 07/15/23 07/15/23 07/16/23 Range/Units 16:16 20:15 06:20 RBC (4.30-5.90) m/uL BUN (9-20) mg/dL Glucose (74-99) mg/dL POC Glucose (mg/dL) 200 H 120 H 128 H (70-110) mg/dL Microbiology - Last 24 Hours (Table) 07/14/23 16:15 Blood Culture - Preliminary Blood
[2023-07-16] MEDS ORDERED: ACETAMINOPHEN TAB 325 MG TAB PO PRN (08:58)
[2023-07-16] MEDS: PRIMIDONE 50 MG TAB PO SCH (09:58)
[2023-07-16] MEDS: atenoloL 50 MG TAB PO SCH (09:58)
[2023-07-16] MEDS: hydroCHLOROthiazide 25 MG TAB PO SCH (09:58)
[2023-07-16] MEDS: amLODIPine 5 MG TAB PO SCH (09:58)
[2023-07-16] MEDS: LACTOBACILLUS ACIDOPHILUS/PECT 1 EACH CAPSULE PO SCH (09:58)
[2023-07-16] MEDS: LOSARTAN 50 MG TAB PO SCH (09:58)
[2023-07-16] MEDS: ASPIRIN 81 MG PO SCH (09:58)
[2023-07-16] MEDS: HEPARIN SODIUM,PORCINE 5,000 UNIT/ML 1 ML VIAL SQ SCH ×2 (09:59→21:13)
[2023-07-16] MEDS: LIDOCAINE 4% PATCH TOPICAL SCH (09:59)
--- NOTE | 2023-07-16 10:09 | P.GSCN ---
History of Present Illness Consult date: 07/16/23 History of present illness: 87-year-old gentleman in the hospital for weakness. We are asked to see for difficulty urination and dysuria. The history is taken from both the daughter and the patient to. Patient states for about 3 weeks he has been having discomfort with urination. The patient according to the daughter has been having incontinence now for several weeks. He sees as his primary care but has not seen her as of late. There is been no previous history urinary tract problems. He has never seen a urologist before. He apparently was in the emergency room recently at [facility] for the dysuria. They didn't think he had an infection with cultures obtained. His urinalysis on admission does not look infected. He is not on any urologic medication. He is wearing a condom type catheter. Per the daughter the urine is lightening up consistent with rehydration. Review of Systems All systems: negative - Constitutional Denies fever, Denies weight loss - EENT Eyes: denies blurred vision Ears, nose, mouth and throat: Denies dysphagia - Cardiovascular Denies chest pain, Denies shortness of breath - Respiratory Denies cough, Denies 7 - Gastrointestinal Reports as per HPI - Genitourinary Denies dysuria, Denies hematuria - Integumentary Denies rash, Denies unusual bruising - Neurological Denies headaches, Denies syncope - Hematologic/Lymphatic Denies easy bleeding, Denies easy bruising Past Medical History Past Medical History: No Reported History History of Any Multi-Drug Resistant Organisms: None Reported Past Surgical History: No Surgical Hx Reported Past Psychological History: No Psychological Hx Reported Smoking Status: Never smoker, Unknown if ever smoked Past Alcohol Use History: None Reported Past Drug Use History: None Reported - Past Family History Mother Family Medical History: Congestive Heart Failure (CHF) Additional Family Medical History / Comment(s): CABG Sister(s) Family Medical History: Cancer, Congestive Heart Failure (CHF) Father Family Medical History: Myocardial Infarction ([place]) Additional Family Medical History / Comment(s): of [place] Medications and Allergies Home Medications Medication Instructions Recorded Confirmed Type Aspirin EC [Ecotrin Low Dose] 81 mg PO DAILY 07/14/23 07/14/23 History Bifidobacterium Infantis [Align] 4 mg PO DAILY 07/14/23 07/14/23 History Cephalexin [Keflex] 500 mg PO BID 07/14/23 07/14/23 History Famotidine 20 mg PO BID 07/14/23 07/14/23 History Losartan Potassium 100 mg PO DAILY 07/14/23 07/14/23 History Primidone [Mysoline] 100 mg PO DAILY 07/14/23 07/14/23 History Psyllium Husk [Fiber Capsule] 0.4 gm PO HS 07/14/23 07/14/23 History Simvastatin [Zocor] 40 mg PO HS 07/14/23 07/14/23 History atenoloL [Tenormin] 50 mg PO DAILY 07/14/23 07/14/23 History fluorouraciL [Efudex] 1 applic TOPICAL BID 07/14/23 07/14/23 History Allergies Allergy/AdvReac Type Severity Reaction Status Date / Time No Known Allergies Allergy Verified 07/14/23 18:23 Surgical - Exam Vital Signs Temp Pulse Resp BP Pulse Ox 98.1 F 84 18 205/107 97 07/14/23 13:57 07/14/23 13:57 07/14/23 13:57 07/14/23 13:57 07/14/23 13:57 - General well developed, well nourished - Eyes normal ocular movement, no icteric - ENT no hearing loss, no congestion, decreased hearing - Neck no masses, trachea midline - Respiratory normal respiratory effort, clear to auscultation - Abdomen Abdomen: soft, non tender, no guarding, no rigid, no rebound - Genitourinary Comdon cath normal penis with no external lesions, testicles present - Integumentary no rash, no abnormal pigmentation - Neurologic no disoriented, no combative - Musculoskeletal normal posture - Psychiatric oriented to time, oriented to person, oriented to place, speech is normal, memory intact Results - Labs 07/15/23 07:49 07/15/23 07:49 Abnormal Lab Results - Last 24 Hours (Table) 07/15/23 07/15/23 07/15/23 Range/Units 11:19 16:16 20:15 POC Glucose (mg/dL) 286 H 200 H 120 H (70-110) mg/dL 07/16/23 Range/Units 06:20 POC Glucose (mg/dL) 128 H (70-110) mg/dL Microbiology - Last 24 Hours (Table) 07/14/23 16:15 Blood Culture - Preliminary Blood Diabetes panel 07/15/23 Range/Units 07:49 Hemoglobin A1c 6.0 (<=6.0) % Assessment and Plan Assessment: Impression: Weakness indeterminate etiology. Voiding dysfunction including dysuria and incontinence Recommendations: The patient's urinalysis is not consistent with infection. I will obtain a postvoid residual to see if the bladder is emptying. He may benefit from some Flomax pending the results of the bladder scan.
[2023-07-16 10:53] LABS: ALT 15 U/L (4-49); AST 31 U/L (17-59); African American GFR (CKD) 77 (>60 ml/min/1.73 sqM); Albumin 3.5 g/dL (3.5-5.0); Alkaline Phosphatase 81 U/L (38-126); Anion Gap 16 mmol/L; Blood Urea Nitrogen 21 mg/dL (9-20); Calcium 9.3 mg/dL (8.4-10.2); Carbon Dioxide 17 mmol/L (22-30); Chloride 110 mmol/L (98-107); Glucose 136 mg/dL (74-99); Non-African American GFR(CKD) 66 (>60 ml/min/1.73 sqM); Sodium 143 mmol/L (137-145); Total Protein 6.9 g/dL (6.3-8.2)
[2023-07-16 10:55] LABS: Potassium 4.2 mmol/L (3.5-5.1)
[2023-07-16 11:38] LABS: Glucose,Whole Blood 236 mg/dL (70-110)
--- NOTE | 2023-07-16 12:28 | XR ---
EXAMINATION TYPE: XR chest 1V portable DATE OF EXAM: 07/16/2023 COMPARISON: 07/14/2023 INDICATION: CHF TECHNIQUE: Single frontal view of the chest is obtained. FINDINGS: The heart size is normal. The pulmonary vasculature is normal. The lungs are clear. 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 IMPRESSION: 1. No acute pulmonary process.
[2023-07-16 15:25] LABS: Basophils % (A) 0 %; Eosinophils # (A) 0.1 k/uL (0-0.7); Eosinophils % (A) 1 %; HCT 38.2 % (39.0-53.0); HGB 12.8 gm/dL (13.0-17.5); Lymphocytes # (A) 1.3 k/uL (1.0-4.8); Lymphocytes % (A) 14 %; MCH 33.2 pg (25.0-35.0); MCHC 33.6 g/dL (31.0-37.0); MCV 98.9 fL (80.0-100.0); Mean Platelet Volume 8.8; Monocytes # (A) 0.6 k/uL (0-1.0); Monocytes % (A) 6 %; Neutrophils # (A) 7.5 k/uL (1.3-7.7); Neutrophils % (A) 77 %; Platelet Count 152 k/uL (150-450); RBC 3.86 m/uL (4.30-5.90); RDW 12.2 % (11.5-15.5); WBC 9.7 k/uL (3.8-10.6)
--- NOTE | 2023-07-16 15:38 | P.CNNES ---
History of Present Illness Consult date: 07/16/23 Requesting physician: Gonzalez Salazar Reason for Consult: Dementia?? History of Present Illness: Patient is a 87-year-old right-handed male came to the hospital by ambulance to days ago at 1:42 PM for worsening mental status and generalized decline. Patient's daughter was present, who provided with a history. Patient has a steady decline for last 2 weeks. He used to poke, dress himself and bathe himself without any difficulty. He does have a walker and a cane to get around and was doing well. His symptoms started occurring about 2 weeks ago with generalized decline. This has got worse in the last 1 week, when he is not taking his medications, not cooking not eating and is incontinent of the urine. He is not asking about using bathroom and he is more quiet, not talking. He starts the sentence, and would not finish it. Usually he is very sharp. He does have history of falls off and on for last 2 years. He has been using cane for last 1-1/2 years. Patient has history of tremors for which she is on pr imidone. Patient's daughter denies any slurring except when he came to the hospital, he has slight slurring on Monday but then it cleared up. Denies any focal numbness tingling weakness or any worsening of his vision. As per EMS flow sheet, when they arrived, patient was sitting in his wheelchair. Patient's family stated that the patient has been increasingly weak over the past 2 weeks, along with having pain all over and confusion. Per family, the patient bent to [facility] 2 days earlier and was diagnosed with UTI and started on antibiotic. Patient's family noticed that patient is getting worse instead of better. Family mentioned that patient has not been eating or d rinking fluids regularly for the past 2 weeks. Family mentioned that patient also has been incontinent. The urine does have a foul odor. When asked the patient, he stated he felt fine. Patient was alert but confused to the event. Patient was unable to stand independently. Family mentioned that patient usually ambulate with the assistance of a walker. Patient was asked for 2 stairs chair for extrication from the home. Patient required a two-person assist for the transfer. EKG monitored revealed possible atrial fibrillation. Patient's vitals at the scene was blood pressure 222/135, pulse rate 86, respirations 20, saturation 100% and temperature 98.1. Patient's blood pressure remained around 205/112. Patient's blood glucose was 334. Vital signs on arrival blood pressure 205/107, pulse rate 84 temperature 98.1. Patient's blood test shows normal CBC PT/PTT, normal CMP, troponin mildly elevated 0.045. Lactate 3.1. TFTs normal. UA negative. Hemoglobin A1c 6.0. EKG revealed supraventricular rhythm. Chest x-ray revealed borderline cardiomegaly. Post CABG changes. No acute process. CT head revealed no acute bleed or mass effect. Moderate generalized atrophy and moderate chronic ischemic white matter demyelination. I personally reviewed CT head, agree with the findings. Slightly more prominence of the ventricles as compared to the amount of cortical atrophy. Home medications include aspirin 81 mg, atenolol, Pepcid, fluorouracil, primid one 100 mg daily, simvastatin 40 mg, cephalexin, losartan. Patient has history of hypertension but no diabetes. He denies tobacco use. He does drink couple cocktails every night. No pacemaker. Review of Systems Constitutional: Denies chills, Denies fever Eyes: denies blurred vision, denies diplopia, denies pain Ears: bilateral: decreased hearing, deny: ear discharge Ears, nose, mouth and throat: Reports headache, Denies sore throat Cardiovascular: Denies chest pain, Denies shortness of breath Respiratory: Reports wheezing, Denies cough, Denies excessive sputum Gastrointestinal: Reports diarrhea, Denies abdominal pain, Denies nausea, Denies vomiting Genitourinary: Reports incontinence, Denies dysuria Musculoskeletal: Reports frequent falls, Reports gait dysfunction, Reports low back pain, Denies neck pain Musculoskeletal: left: shoulder pain Integumentary: Denies pruritus, Denies rash Neurological: Reports as per HPI Psychiatric: Denies anxiety, Denies depression, Denies memory loss Endocrine: Reports fatigue, Denies weight change Hematologic/Lymphatic: Reports easy bleeding, Reports easy bruising Past Medical History Past Medical History: No Reported History History of Any Multi-Drug Resistant Organisms: None Reported Past Surgical History: No Surgical Hx Reported Past Psychological History: No Psychological Hx Reported Smoking Status: Never smoker, Unknown if ever smoked Past Alcohol Use History: None Reported Past Drug Use History: None Reported - Past Family History Mother Family Medical History: Congestive Heart Failure (CHF) Additional Family Medical History / Comment(s): CABG Sister(s) Family Medical History: Cancer, Congestive Heart Failure (CHF) Father Family Medical History: Myocardial Infarction ([place]) Additional Family Medical History / Comment(s): of [place] Medications and Allergies Home Medications Medication Instructions Recorded Confirmed Type Aspirin EC [Ecotrin Low Dose] 81 mg PO DAILY 07/14/23 07/14/23 History Bifidobacterium Infantis [Align] 4 mg PO DAILY 07/14/23 07/14/23 History Cephalexin [Keflex] 500 mg PO BID 07/14/23 07/14/23 History Famotidine 20 mg PO BID 07/14/23 07/14/23 History Losartan Potassium 100 mg PO DAILY 07/14/23 07/14/23 History Primidone [Mysoline] 100 mg PO DAILY 07/14/23 07/14/23 History Psyllium Husk [Fiber Capsule] 0.4 gm PO HS 07/14/23 07/14/23 History Simvastatin [Zocor] 40 mg PO HS 07/14/23 07/14/23 History atenoloL [Tenormin] 50 mg PO DAILY 07/14/23 07/14/23 History fluorouraciL [Efudex] 1 applic TOPICAL BID 07/14/23 07/14/23 History Allergies Allergy/AdvReac Type Severity Reaction Status Date / Time No Known Allergies Allergy Verified 07/14/23 18:23 Physical Examination - Vital Signs Vital Signs: Vital Signs Temp Pulse Resp BP Pulse Ox 07/16/23 08:00 97.9 F 74 18 194/93 98 07/16/23 04:18 77 18 194/93 98 07/15/23 23:37 83 18 186/95 97 07/15/23 20:07 72 16 196/96 97 07/15/23 16:00 98.4 F 72 17 189/83 98 07/15/23 14:00 72 17 07/15/23 12:00 97.8 F 68 18 167/81 97 Intake and Output 07/15/23 07/16/23 07/16/23 22:59 06:59 14:59 Output Total 500 Balance -500 Output: Urine 500 Other: Voiding Method Incontinent Incontinent Incontinent Patient is an elderly male, very pleasant, in no acute distress. Patient is alert awake, has slow mentation, prolonged latency time to answer questions. He states is August and the year is . He could not name the current city or the state, or tell his address. Speech and language functions are normal. Patient can name all 4 objects presented without difficulty and can repeat very well. No aphasia or dysarthria. Attention, concentration is impaired and fund of knowledge is limited. Per family, he does not have dementia. On cranial nerve examination, pupils are equal, round and reacting to light, visual reddy are full on confrontation. I could not get his attention to check for neglect. Extraocular muscles are intact with no nystagmus. Patient has flattening of the right nasolabial fold. His tongue protrudes to the midline. Palatal elevation and sensation normal, hearing is moderately decreased and shoulder shrug normal, facial sensation normal. On muscle strength testing, there is no pronator drift and the strength is normal in arms and legs distally and proximally. The hip flexion was about 4 bilaterally. Sensory Deep tendon reflexes are symmetric 1 bilaterally and plantars withdrawal. Sensory to touch is equal. Patient has difficulty with following directions regarding neglect. Cerebellar function showed no ataxia for [id number] testing. No dysd iadochokinesia. Tone is mild to moderately increased with some cogwheeling and bulk of muscles normal. Patient has mild resting tremors of his hands. Gait deferred.. On general examination, there is no carotid bruit or murmur, S1-S2 audible. Chest is clear on consultation. Abdomen is soft nontender. No organomegaly, bowel sounds present. Peripheral pulses are present. No peripheral edema. patient has multiple bruises. Results - Laboratory Findings CBC and BMP: 07/16/23 14:53 07/16/23 07:55 Abnormal Lab Findings: Abnormal Labs 07/14/23 07/14/23 07/14/23 14:42 14:42 14:42 RBC 4.08 L Neutrophils # 8.2 H Lymphocytes # 0.9 L Chloride Carbon Dioxide BUN 28 H Glucose 307 H POC Glucose (mg/dL) Plasma Lactic Acid Tee Troponin I 0.045 H* Urine Protein Urine Glucose (UA) Urine Blood 07/14/23 07/14/23 07/14/23 16:35 16:49 17:07 RBC Neutrophils # Lymphocytes # Chloride Carbon Dioxide BUN Glucose POC Glucose (mg/dL) 185 H Plasma Lactic Acid Tee 3.1 H* Troponin I Urine Protein 1+ H Urine Glucose (UA) 2+ H Urine Blood Small H 07/14/23 07/14/23 07/14/23 18:27 20:45 20:55 RBC Neutrophils # Lymphocytes # Chloride Carbon Dioxide BUN Glucose POC Glucose (mg/dL) 132 H Plasma Lactic Acid Tee Troponin I 0.048 H* 0.051 H* Urine Protein Urine Glucose (UA) Urine Blood 07/15/23 07/15/23 07/15/23 06:52 07:49 07:49 RBC 3.99 L Neutrophils # Lymphocytes # Chloride Carbon Dioxide BUN 24 H Glucose 127 H POC Glucose (mg/dL) 111 H Plasma Lactic Acid Tee Troponin I Urine Protein Urine Glucose (UA) Urine Blood 07/15/23 07/15/23 07/15/23 11:19 16:16 20:15 RBC Neutrophils # Lymphocytes # Chloride Carbon Dioxide BUN Glucose POC Glucose (mg/dL) 286 H 200 H 120 H Plasma Lactic Acid Tee Troponin I Urine Protein Urine Glucose (UA) Urine Blood 07/16/23 07/16/23 06:20 07:55 RBC Neutrophils # Lymphocytes # Chloride 110 H Carbon Dioxide 17 L BUN 21 H Glucose 136 H POC Glucose (mg/dL) 128 H Plasma Lactic Acid Tee Troponin I Urine Protein Urine Glucose (UA) Urine Blood Assessment and Plan Assessment: * 2 week history of generalized decline, with not performing ADLs, not talking much, or eating and incontinence. Examination reveals some psychomotor slowing and right facial droop. Rule out CVA. * Abnormal brain scan, with evidence of possible mild hydrocephalus. Patient has couple years history of gait imbalance with falls, and more recent onset of urinary incontinence. Rule out NPH. * Recent UTI, treated with cephalexin * Hypertensive urgency * Hypertension * Hard of hearing * History of tremors, currently on primidone. Patient's tremor is more at rest, suggestive of possible parkinsonism. Plan: * MRI of the brain rule out CVA, evaluate for possible NPH. * 2-D echo completed, results pending. * Carotid Doppler revealed calcified plaquing within the carotid pulse. No significant flow limiting stenosis bilateral ICA. Antegrade flow in both vertebral arteries. * Continue aspirin and statin. * Check B12, folate. * PT OT, speech therapy. * Optimize control of blood pressure. * Neurology will follow. Thank you for the consult.
--- NOTE | 2023-07-16 16:06 | CA ---
Transthoracic Echo Report Name: Gilbert Holt Age: 87 Gender: M : 1935 Exam Date: 07/15/2023 12:42 Exam Location: [facility] Ht (in): 60 Wt (lb): 200 Ordering Physician: Gonzalez Salazar MD Attending/Referring Phys: Civil Rights Attorney Karen Arellano RDCS Procedure CPT: Indications: stroke Cardiac Hx: Technical Quality: Technically difficult study Contrast 1: Definity Total Dose (mL): 2 Contrast 2: Total Dose (mL): MEASUREMENTS (Male / Female) Normal Values 2D ECHO LV Diastolic Diameter PLAX 3.8 cm 4.2 - 5.9 / 3.9 - 5.3 cm LV Systolic Diameter PLAX 2.7 cm IVS Diastolic Thickness 1.5 cm 0.6 - 1.0 / 0.6 - 0.9 cm LVPW Diastolic Thickness 1.6 cm 0.6 - 1.0 / 0.6 - 0.9 cm LV Relative Wall Thickness 0.8 RV Internal Dim ED PLAX 3.2 cm LA Volume 59.7 cm??? 18 - 58 / 22 - 52 cm??? LA Volume Index 29.7 cm???/m??? 16 - 28 cm???/m??? M-MODE Aortic Root Diameter MM 3.1 cm LA Systolic Diameter MM 4.7 cm LA Ao Ratio MM 1.5 AV Cusp Separation MM 1.9 cm DOPPLER AV Peak Velocity 110.9 cm/s AV Peak Gradient 4.9 mmHg AV Mean Velocity 71.8 cm/s AV Mean Gradient 2.4 mmHg AV Velocity Time Integral 20.2 cm LVOT Peak Velocity 87.7 cm/s LVOT Peak Gradient 3.1 mmHg LVOT Velocity Time Integral 16.7 cm MV Area PHT 5.1 cm??? Mitral E Point Velocity 65.6 cm/s Mitral A Point Velocity 84.1 cm/s Mitral E to A Ratio 0.8 MV Deceleration Time 147.3 ms MV E' Velocity 4.9 cm/s Mitral E to MV E' Ratio 13.5 TR Peak Velocity 165.8 cm/s TR Peak Gradient 11.0 mmHg Right Ventricular Systolic Press 16.0 mmHg FINDINGS Left Ventricle Moderately increased left ventricular wall thickness. Left ventricular cavity size normal. Abnormal (paradoxical) septal motion consistent with postoperative state. Normal left ventricular systolic function with no obvious regional wall motion abnormalities. Left ventricular ejection fraction is estimated at 55-60 %. Right Ventricle Normal right ventricular size and function. Right ventricular systolic pressure within normal limits. Right Atrium Normal right atrial size. Left Atrium Mildly increased left atrial volume. Mildly increased left atrial area. Mitral Valve Structurally normal mitral valve. Mild mitral annular calcification. Mild mitral regurgitation. Aortic Valve No aortic valve stenosis or regurgitation. Tricuspid Valve Structurally normal tricuspid valve. Mild tricuspid regurgitation. Pulmonic Valve Structurally normal pulmonic valve. Pericardium No pericardial effusion. Aorta Normal size aortic root and proximal ascending aorta. CONCLUSIONS Normal LV systolic function Previewed by: Dr. Mendoza Connor MD (Electronically Signed) Final Date: 16 July 2023 16:06
--- NOTE | 2023-07-16 16:16 | P.CONS ---
History of Present Illness - Reason for Consult Consult date: 07/15/23 Cellulitis Requesting physician: Gonzalez Salazar - Chief Complaint Weakness x few days - History of Present Illness Patient is a 87-year-old male with a past medical history significant for coronary artery disease hypertension hyperlipidemia, patient has been brought into the hospital however the patient seems to be getting significantly weak and unable to ambulate at home and apparently the patient did have multiple falls patient has not been eating and drinking at home over the last few days no clear history of any fever or chills at home and no fever has been recorded since the patient has been to the hospital patient denies having any headache or URI symptoms denies any chest pain shortness of breath occasional cough no nausea vomiting no abdominal pain or any diarrhea and no urinary symptoms on arrival to the ER the patient was afebrile and no fever has been called subsequently patient was not tachycardic hypotensive or hypoxic patient did have a white count of 10.0 with a left shift creatinine was normal lactic acid was normal liver enzymes are normal troponins are elevated urine has been negative chest x-ray borderline cardiomegaly no definite acute process infectious disease was consulted today regarding cellulitis Review of Systems Positive point and negatives has been mentioned in the HPI, complete review of systems was performed and all other systems are negative Past Medical History Past Medical History: No Reported History History of Any Multi-Drug Resistant Organisms: None Reported Past Surgical History: No Surgical Hx Reported Past Psychological History: No Psychological Hx Reported Smoking Status: Never smoker, Unknown if ever smoked Past Alcohol Use History: None Reported Past Drug Use History: None Reported - Past Family History Mother Family Medical History: Congestive Heart Failure (CHF) Additional Family Medical History / Comment(s): CABG Sister(s) Family Medical History: Cancer, Congestive Heart Failure (CHF) Father Family Medical History: Myocardial Infarction ([place]) Additional Family Medical History / Comment(s): of [place] Medications and Allergies Home Medications Medication Instructions Recorded Confirmed Type Aspirin EC [Ecotrin Low Dose] 81 mg PO DAILY 07/14/23 07/14/23 History Bifidobacterium Infantis [Align] 4 mg PO DAILY 07/14/23 07/14/23 History Cephalexin [Keflex] 500 mg PO BID 07/14/23 07/14/23 History Famotidine 20 mg PO BID 07/14/23 07/14/23 History Losartan Potassium 100 mg PO DAILY 07/14/23 07/14/23 History Primidone [Mysoline] 100 mg PO DAILY 07/14/23 07/14/23 History Psyllium Husk [Fiber Capsule] 0.4 gm PO HS 07/14/23 07/14/23 History Simvastatin [Zocor] 40 mg PO HS 07/14/23 07/14/23 History atenoloL [Tenormin] 50 mg PO DAILY 07/14/23 07/14/23 History fluorouraciL [Efudex] 1 applic TOPICAL BID 07/14/23 07/14/23 History Allergies Allergy/AdvReac Type Severity Reaction Status Date / Time No Known Allergies Allergy Verified 07/14/23 18:23 Physical Exam Vitals: Vital Signs Temp Pulse Pulse Resp BP BP Pulse Ox 07/15/23 08:07 78 18 170/96 98 07/15/23 04:00 97.2 F L 81 16 159/79 94 L 07/15/23 02:00 68 16 07/15/23 00:00 97.8 F 68 16 136/77 95 07/14/23 20:00 98.1 F 74 18 160/85 99 07/14/23 16:55 82 18 159/88 94 L 07/14/23 16:50 153/95 07/14/23 14:56 79 18 190/90 99 07/14/23 13:57 98.1 F 84 18 205/107 97 Intake and Output 07/14/23 07/15/23 07/15/23 22:59 06:59 14:59 Other: Voiding Method Incontinent Incontinent # Voids 2 1 Weight 90.718 kg 90.718 kg GENERAL DESCRIPTION: Elderly male lying in bed, no distress. No tachypnea or accessory muscle of respiration use. HEENT: Shows Pallor , no scleral icterus. Oral mucous membrane is dry. No pharyngeal erythema or thrush NECK: Trachea central, no thyromegaly. LUNGS: Unlabored breathing. Clear to auscultation anteriorly. No wheeze or crack le. HEART: S1, S2, regular rate and rhythm. No loud murmur ABDOMEN: Soft, no tenderness , guarding or rigidity, no organomegaly EXTREMITIES: Bilateral lower extremity with no swelling or redness right upper extremity did have a large bruise but no redness SKIN: Did have a multiple skin tags to the scalp area from his skin cancer currently with no evidence of any redness open wound or any drainage NEUROLOGICAL: The patient is awake, alert, oriented x3, mood and affect normal. Results CBC & Chem 7: 07/16/23 14:53 07/16/23 07:55 Labs: Abnormal Lab Results - Last 24 Hours (Table) 07/14/23 07/14/23 07/14/23 Range/Units 14:42 14:42 14:42 RBC 4.08 L (4.30-5.90) m/uL Neutrophils # 8.2 H (1.3-7.7) k/uL Lymphocytes # 0.9 L (1.0-4.8) k/uL BUN 28 H (9-20) mg/dL Glucose 307 H (74-99) mg/dL POC Glucose (mg/dL) (70-110) mg/dL Plasma Lactic Acid Tee (0.7-2.0) mmol/L Troponin I 0.045 H* (0.000-0.034) ng/mL Urine Protein (Negative) Urine Glucose (UA) (Negative) Urine Blood (Negative) 07/14/23 07/14/23 07/14/23 Range/Units 16:35 16:49 17:07 RBC (4.30-5.90) m/uL Neutrophils # (1.3-7.7) k/uL Lymphocytes # (1.0-4.8) k/uL BUN (9-20) mg/dL Glucose (74-99) mg/dL POC Glucose (mg/dL) 185 H (70-110) mg/dL Plasma Lactic Acid Tee 3.1 H* (0.7-2.0) mmol/L Troponin I (0.000-0.034) ng/mL Urine Protein 1+ H (Negative) Urine Glucose (UA) 2+ H (Negative) Urine Blood Small H (Negative) 07/14/23 07/14/23 07/14/23 Range/Units 18:27 20:45 20:55 RBC (4.30-5.90) m/uL Neutrophils # (1.3-7.7) k/uL Lymphocytes # (1.0-4.8) k/uL BUN (9-20) mg/dL Glucose (74-99) mg/dL POC Glucose (mg/dL) 132 H (70-110) mg/dL Plasma Lactic Acid Tee (0.7-2.0) mmol/L Troponin I 0.048 H* 0.051 H* (0.000-0.034) ng/mL Urine Protein (Negative) Urine Glucose (UA) (Negative) Urine Blood (Negative) 07/15/23 07/15/23 07/15/23 Range/Units 06:52 07:49 07:49 RBC 3.99 L (4.30-5.90) m/uL Neutrophils # (1.3-7.7) k/uL Lymphocytes # (1.0-4.8) k/uL BUN 24 H (9-20) mg/dL Glucose 127 H (74-99) mg/dL POC Glucose (mg/dL) 111 H (70-110) mg/dL Plasma Lactic Acid Tee (0.7-2.0) mmol/L Troponin I (0.000-0.034) ng/mL Urine Protein (Negative) Urine Glucose (UA) (Negative) Urine Blood (Negative) 07/15/23 Range/Units 11:19 RBC (4.30-5.90) m/uL Neutrophils # (1.3-7.7) k/uL Lymphocytes # (1.0-4.8) k/uL BUN (9-20) mg/dL Glucose (74-99) mg/dL POC Glucose (mg/dL) 286 H (70-110) mg/dL Plasma Lactic Acid Tee (0.7-2.0) mmol/L Troponin I (0.000-0.034) ng/mL Urine Protein (Negative) Urine Glucose (UA) (Negative) Urine Blood (Negative) Assessment and Plan (1) Weakness Current Visit: Yes Status: Acute Code(s): R53.1 - WEAKNESS SNOMED Code(s): 23186723 Plan: 1patient presented hospital with weakness, multiple falls not eating and drinking in this patient currently with no fever patient did have a history of skin cancer and did have a multiple skin tags and a large bruise to the right upper extremity however no redness has been noticed patient is not running any fever white count is normal clinically doubt cellulitis or any obvious focus of infection with a negative UA and chest x-ray negative as well 2recommend discontinuation of antibiotic therapy We will follow on clinical condition and cultures to further adjust medication if needed Thank you for this consultation we will follow the patient along with you Dictation was produced using [employer] dictation software. please excuse any grammatical, word or spelling errors. Time with Patient: Greater than 30
--- NOTE | 2023-07-16 16:19 | P.PN ---
Subjective Progress Note Date: 07/16/23 Principal diagnosis: Reason for follow-up is question of cellulitis Patient is a 87-year-old male with a past medical history significant for coronary artery disease hypertension hyperlipidemia, patient has been brought into the hospital however the patient seems to be getting significantly weak and unable to ambulate at home, patient did have a history of skin cancer with multiple tacks to the forehead and scalp area and also noticed to have a large bruise to the right forearm concerning for cellulitis started on cefazolin infectious disease was consulted. On today's evaluation that is 07/16/2023 the patient denies having any fever or any chills patient is breathing comfortably on room air denies any chest pain shortness of breath or cough no nausea vomiting no abdominal pain or diarrhea did not have any open wound or any drainage. Patient did have a white count of9.7, creatinine 1.01 Objective - Vital Signs Vital signs: Vital Signs Temp 98.4 F 07/16/23 12:00 Pulse 74 07/16/23 13:43 Resp 18 07/16/23 13:43 BP 141/77 07/16/23 12:00 Pulse Ox 98 07/16/23 12:00 FiO2 Intake & Output 07/15/23 07/16/23 07/16/23 18:59 06:59 18:59 Intake Total 555 Output Total 500 600 Balance -500 -45 Weight 90.718 kg Intake: Intake, IV Titration 75 Amount Sodium Chloride 0.9% 1, 75 000 ml @ 75 mls/hr IV . [id number] ERNESTO Rx#:[id number] Oral 480 Output: Urine 500 600 Other: Voiding Method Incontinent Incontinent Incontinent # Voids 1 - Exam GENERAL DESCRIPTION: An elderly male lying in bed in no distress RESPIRATORY SYSTEM: Unlabored breathing , decreased breath sounds at bases HEART: S1 S2 regular rate and rhythm , ABDOMEN: Soft , no tenderness EXTREMITIES: Right upper extremity did have a large bruise no redness no pulm or any drainage - Labs CBC & Chem 7: 07/16/23 14:53 07/16/23 07:55 Labs: Abnormal Lab Results - Last 24 Hours (Table) 07/15/23 07/15/23 07/16/23 Range/Units 16:16 20:15 06:20 RBC (4.30-5.90) m/uL Hgb (13.0-17.5) gm/dL Hct (39.0-53.0) % Chloride (98-107) mmol/L Carbon Dioxide (22-30) mmol/L BUN (9-20) mg/dL Glucose (74-99) mg/dL POC Glucose (mg/dL) 200 H 120 H 128 H (70-110) mg/dL 07/16/23 07/16/23 07/16/23 Range/Units 07:55 11:37 14:53 RBC 3.86 L (4.30-5.90) m/uL Hgb 12.8 L (13.0-17.5) gm/dL Hct 38.2 L (39.0-53.0) % Chloride 110 H (98-107) mmol/L Carbon Dioxide 17 L (22-30) mmol/L BUN 21 H (9-20) mg/dL Glucose 136 H (74-99) mg/dL POC Glucose (mg/dL) 236 H (70-110) mg/dL Microbiology - Last 24 Hours (Table) 07/14/23 16:15 Blood Culture - Preliminary Blood Assessment and Plan (1) Weakness Current Visit: Yes Status: Acute Code(s): R53.1 - WEAKNESS SNOMED Code(s): 25166422 (2) Bruise of both arms Current Visit: Yes Status: Acute Code(s): S40.021A - CONTUSION OF RIGHT UPPER ARM, INITIAL ENCOUNTER; S40.022A - CONTUSION OF LEFT UPPER ARM, INITIAL ENCOUNTER SNOMED Code(s): 20974730 Plan: 1patient presented hospital with weakness, multiple falls not eating and drinking in this patient currently with no fever patient did have a history of skin cancer and did have a multiple skin tags and a large bruise to the right upper extremity however no redness has been noticed patient is not running any fever white count is normal clinically doubt cellulitis or any obvious focus of infection with a negative UA and chest x-ray negative as well 2 currently without evidence of any cellulitis we will go ahead and discontinue cefazolin and monitor the patient closely off antibiotic therapy Family at the bedside question concern answered Dictation was produced using [employer] dictation software. please excuse any grammatical, word or spelling errors. Time with Patient: Less than 30
[2023-07-16 16:42] LABS: Glucose,Whole Blood 175 mg/dL (70-110)
[2023-07-16] MEDS: SODIUM CHLORIDE 0.9% 1,000 ML IV SCH ×2 (18:25→21:15)
[2023-07-16 20:31] LABS: Glucose,Whole Blood 191 mg/dL (70-110)
[2023-07-16] MEDS: ATORVASTATIN 20 MG TAB PO SCH (21:14)
[2023-07-16] MEDS: FAMOTIDINE 20 MG TAB PO SCH (21:14)
[2023-07-16] MEDS: PSYLLIUM HUSK 100% 6 GM PACKET PO SCH (21:14)
--- NOTE | 2023-07-17 05:10 | PN ---
PROGRESS NOTE DATE OF SERVICE: 07/16/2023 SUBJECTIVE: This 87-year-old gentleman admitted with significant change in mental status and confusion, had possible hypertensive encephalopathy, blood glucose also finely elevated with new-onset diabetes mellitus. The patient continues to be confused, started the patient on empiric antibiotics with possibly some skin cellulitis. The patient also has history of extensive skin cancer also. The patient also has some dysuria and also has some incontinence as well. No chest pain, no palpitation. The patient is confused. PAST MEDICAL HISTORY: Reviewed. REVIEW OF SYSTEMS: Could not be taken as the patient is confused. CURRENT MEDICATIONS: Reviewed include Norvasc, doses and rest of medications noted. PHYSICAL EXAMINATION: VITAL SIGNS: Pulse 77, blood pressure 194/93, respirations 18. CHEST: A few scattered rhonchi and crackles. ABDOMEN: Soft. NERVOUS SYSTEM: Nonfocal. LABORATORY DATA: Reviewed. ASSESSMENT: 1. Change in mental status, possibly acute encephalopathy, hypertensive encephalopathy. 2. Accelerated hypertension, hypertensive urgency. 3. Possible cellulitis. 4. Troponin 0.045. 5. Diabetes mellitus type 2, new onset. 6. Possible dementia. 7. Gait dysfunction. 8. History of skin cancer. 9. No code, no CPR, no vent. 10.Gait dysfunction. RECOMMENDATIONS: Recommended to continue current management, continue symptomatic treatment. I recommended empiric antibiotics and Infectious Disease evaluation. Guarded prognosis. Further recommendations to follow. See orders for details. MMODL / IJN: [id number] /
[2023-07-17] MEDS: INSULIN ASPART (NovoLOG) 100 UNIT/ML VIAL SQ SCH ×4 (06:19→21:20)
[2023-07-17 07:18] LABS: Basophils % (A) 0 %; Eosinophils # (A) 0.1 k/uL (0-0.7); Eosinophils % (A) 1 %; HCT 36.9 % (39.0-53.0); Lymphocytes # (A) 1.3 k/uL (1.0-4.8); Lymphocytes % (A) 14 %; MCH 32.4 pg (25.0-35.0); MCHC 32.6 g/dL (31.0-37.0); MCV 99.6 fL (80.0-100.0); Mean Platelet Volume 8.7; Monocytes # (A) 0.5 k/uL (0-1.0); Monocytes % (A) 5 %; Neutrophils # (A) 6.8 k/uL (1.3-7.7); Neutrophils % (A) 77 %; Platelet Count 176 k/uL (150-450); RDW 12.4 % (11.5-15.5); WBC 8.9 k/uL (3.8-10.6)
[2023-07-17 08:27] LABS: African American GFR (CKD) 73 (>60 ml/min/1.73 sqM); Anion Gap 11 mmol/L; Blood Urea Nitrogen 21 mg/dL (9-20); Calcium 8.6 mg/dL (8.4-10.2); Carbon Dioxide 22 mmol/L (22-30); Chloride 103 mmol/L (98-107); Glucose 129 mg/dL (74-99); Non-African American GFR(CKD) 63 (>60 ml/min/1.73 sqM); Potassium 3.2 mmol/L (3.5-5.1); Sodium 136 mmol/L (137-145)
[2023-07-17] MEDS: atenoloL 50 MG TAB PO SCH (09:16)
[2023-07-17] MEDS: HEPARIN SODIUM,PORCINE 5,000 UNIT/ML 1 ML VIAL SQ SCH ×2 (09:17→21:22)
[2023-07-17] MEDS: LACTOBACILLUS ACIDOPHILUS/PECT 1 EACH CAPSULE PO SCH (09:17)
[2023-07-17] MEDS: PRIMIDONE 50 MG TAB PO SCH (09:17)
[2023-07-17] MEDS: ASPIRIN 81 MG PO SCH (09:17)
[2023-07-17] MEDS: hydroCHLOROthiazide 25 MG TAB PO SCH (09:17)
[2023-07-17] MEDS: amLODIPine 5 MG TAB PO SCH (09:17)
[2023-07-17] MEDS: LOSARTAN 50 MG TAB PO SCH (09:17)
[2023-07-17] MEDS: LIDOCAINE 4% PATCH TOPICAL SCH (09:18)
[2023-07-17] MEDS: NON FORMULARY DRUG (Fluorouracil [Efudex] 40 GM Cream..G.) TOPICAL SCH ×2 (11:59→21:18)
[2023-07-17] MEDS ORDERED: Potassium Replacement Protocol 1 EACH MISC MISCELLANE PRN (12:37)
--- NOTE | 2023-07-17 13:26 | PN ---
PROGRESS NOTE DATE OF SERVICE: 07/17/2023 SUBJECTIVE: This is an 87-year-old gentleman who was admitted with hypertensive encephalopathy, also had some cellulitis, but he is improving. No chest pain, no palpitations, no fever. OBJECTIVE: VITAL SIGNS: Pulse 71, blood pressure 166/80, and respirations 18. CHEST: Clear to auscultation. CARDIOVASCULAR: S1, S2. ABDOMEN: Soft. NERVOUS SYSTEM: Nonfocal. LABORATORY DATA: Sodium 130, potassium 3.2. ASSESSMENT: 1. Change in mental status and acute hypertensive encephalopathy. 2. Accelerated hypertension, hypertensive urgency. 3. Cellulitis. 4. Troponin 0.045. 5. Diabetes mellitus type 2, new onset. 6. Dementia, possibly. 7. Gait dysfunction. 8. History of skin cancer. 9. No code, no CPR. No vent. RECOMMENDATIONS: Recommend to continue current management and adjust blood pressure PT OT evaluation, possible ECF. Replace potassium. Further recommendations to follow. MMODL / IJN: [id number] /
--- NOTE | 2023-07-17 14:00 | P.PN ---
Subjective Progress Note Date: 07/17/23 The patient is a pleasant 87-year-old gentleman with coronary artery disease and hypertension and dyslipidemia was admitted to the hospital was hypertension emergency. He was seen and evaluated this morning. He continues to be hypertensive. Currently is on high-dose losartan which is maximum dose and also he is on atenolol. I'm going to add hydrocortisone to the current medical regimen his kidney function are within normal limits. Beside that he has been experiencing dysuria. I asked for a urology consult to rule out any obstructive uropathy and he might benefit from medications for that. No pain in the chest and no shortness of breath. He is experiencing mild headache likely secondary to hypertension. 07/17 Patient is waiting for MRI of the brain today. Blood pressure readings have b een elevated patient is on atenolol which will be changed to Coreg. The examination is remarkable for distant heart sounds with clear breathing sounds bilaterally and no lower extremity edema noted Assessment Hypertension emergency Coronary artery disease Multiple comorbid conditions Plan Continue hydrochlorothiazide to the current medical regimen Rule out obstructive uropathy Consider ruling out persistent hypertension if the pressure remains elevated Change atenolol to Coreg 12.5 mg twice daily Follow-up with the patient Nurse practitioner note has been reviewed, I agree with the documented findings and plan of care. Patient was seen and examined. Objective - Vital Signs Vital signs: Vital Signs Temp 98.2 F 07/17/23 08:30 Pulse 73 07/17/23 08:30 Resp 18 07/17/23 08:30 BP 170/76 07/17/23 08:30 Pulse Ox 98 07/17/23 08:30 FiO2 Intake & Output 07/16/23 07/17/23 07/17/23 18:59 06:59 18:59 Intake Total 555 540 Output Total 600 750 Balance -45 -210 Intake: Intake, IV Titration 75 Amount Sodium Chloride 0.9% 1, 75 000 ml @ 75 mls/hr IV . [id number] ERNESTO Rx#:[id number] Oral 480 540 Output: Urine 600 750 Other: Voiding Method Incontinent Incontinent External Catheter - Labs CBC & Chem 7: 07/17/23 06:36 07/17/23 06:36 Labs: Abnormal Lab Results - Last 24 Hours (Table) 07/16/23 07/16/23 07/16/23 Range/Units 07:55 11:37 14:53 RBC 3.86 L (4.30-5.90) m/uL Hgb 12.8 L (13.0-17.5) gm/dL Hct 38.2 L (39.0-53.0) % Sodium (137-145) mmol/L Potassium (3.5-5.1) mmol/L Chloride 110 H (98-107) mmol/L Carbon Dioxide 17 L (22-30) mmol/L BUN 21 H (9-20) mg/dL Glucose 136 H (74-99) mg/dL POC Glucose (mg/dL) 236 H (70-110) mg/dL 07/16/23 07/16/23 07/17/23 Range/Units 16:40 20:30 06:36 RBC 3.70 L (4.30-5.90) m/uL Hgb 12.0 L (13.0-17.5) gm/dL Hct 36.9 L (39.0-53.0) % Sodium (137-145) mmol/L Potassium (3.5-5.1) mmol/L Chloride (98-107) mmol/L Carbon Dioxide (22-30) mmol/L BUN (9-20) mg/dL Glucose (74-99) mg/dL POC Glucose (mg/dL) 175 H 191 H (70-110) mg/dL 07/17/23 Range/Units 06:36 RBC (4.30-5.90) m/uL Hgb (13.0-17.5) gm/dL Hct (39.0-53.0) % Sodium 136 L (137-145) mmol/L Potassium 3.2 L (3.5-5.1) mmol/L Chloride (98-107) mmol/L Carbon Dioxide (22-30) mmol/L BUN 21 H (9-20) mg/dL Glucose 129 H (74-99) mg/dL POC Glucose (mg/dL) (70-110) mg/dL Microbiology - Last 24 Hours (Table) 07/14/23 16:15 Blood Culture - Preliminary Blood
[2023-07-17 16:14] LABS: Chol/HDL Ratio 2.67 Ratio; LDL Cholesterol,Calculated 70.5 mg/dL (0.0-131.0); VLDL Calculation 17.72 mg/dL (5.00-40.00)
--- NOTE | 2023-07-17 16:18 | MR ---
EXAMINATION TYPE: MR brain wo con DATE OF EXAM: 07/17/2023 3:34 PM CLINICAL INDICATION:Male, 87 years old with history of Weakness, CVA, NPH; PHH, Weakness, CVA, NPH COMPARISON: 07/14/2023. TECHNIQUE: Multi planar, multi sequence imaging was performed through the brain including: T1, T2, In version recovery, Diffusion weighted imaging, and gradient echo imaging. No gadolinium was given. FINDINGS: Mild cerebral atrophy with proportional dilation of ventricular system. Scattered foci of high T2 s ignal intensity are seen within the periventricular white matter. Midline structures show no abnormal ity. Diffusion-weighted imaging shows no evidence of restricted diffusion. The susceptibility weighte d images do not reveal any evidence for micro-hemorrhage. The bone marrow signal is within normal limits. Paranasal sinuses and mastoid air cells: No significant paranasal sinus disease. Visualized orbits: Bilateral aphakia IMPRESSION: 1. No evidence of intracranial mass or acute/subacute infarct. 2. Nonspecific white matter changes, likely secondary to small vessel ischemic disease. 3. Dilation of the ventricles in proportion to cerebral atrophy.
[2023-07-17] MEDS: carvediloL 12.5 MG TAB PO SCH (16:31)
[2023-07-17] MEDS: POTASSIUM CHLORIDE ER 20 MEQ TAB.ER PO SCH ×2 (17:28→18:36)
--- NOTE | 2023-07-17 19:55 | P.PN ---
Subjective Progress Note Date: 07/17/23 Patient was seen for a follow-up. Patient is laying comfortably in the bed. Offers no complaints. Family states that he is essentially unchanged. Objective - Vital Signs Vital signs: Vital Signs Temp 98.1 F 07/17/23 16:00 Pulse 78 07/17/23 16:00 Resp 18 07/17/23 16:00 BP 155/87 07/17/23 18:38 Pulse Ox 98 07/17/23 16:00 FiO2 Intake & Output 07/17/23 07/17/23 07/18/23 06:59 18:59 06:59 Intake Total 540 120 Output Total 750 Balance -210 120 Intake: Oral 540 120 Output: Urine 750 Other: Voiding Method Incontinent Incontinent External Catheter External Catheter - Exam Unchanged. Mentation stable. - Labs CBC & Chem 7: 07/17/23 06:36 07/17/23 06:36 Labs: Abnormal Lab Results - Last 24 Hours (Table) 07/16/23 07/17/23 07/17/23 Range/Units 20:30 06:36 06:36 RBC 3.70 L (4.30-5.90) m/uL Hgb 12.0 L (13.0-17.5) gm/dL Hct 36.9 L (39.0-53.0) % Sodium 136 L (137-145) mmol/L Potassium 3.2 L (3.5-5.1) mmol/L BUN 21 H (9-20) mg/dL Glucose 129 H (74-99) mg/dL POC Glucose (mg/dL) 191 H (70-110) mg/dL Microbiology - Last 24 Hours (Table) 07/14/23 16:49 Urine Culture - Final Urine,Voided 07/14/23 16:15 Blood Culture - Preliminary Blood Assessment and Plan Assessment: * 2 week history of generalized decline, with not performing ADLs, not talking much, or eating and incontinence. Examination reveals some psychomotor slowing and right facial droop. Rule out CVA. * Abnormal brain scan, with evidence of possible mild hydrocephalus. Patient has couple years history of gait imbalance with falls, and more recent onset of urinary incontinence. Rule out NPH. * Recent UTI, treated with cephalexin * Hypertensive urgency * Hypertension * Hard of hearing * History of tremors, currently on primidone. Patient's tremor is more at rest, suggestive of possible parkinsonism. Plan: * MRI of the brain revealed no evidence of intracranial mass, acute/subacute infarct. Nonspecific white matter changes, likely secondary to small vessel ischemic disease. Dilation of the ventricles in proportion to cerebral atrophy. I personally reviewed MRI, and suspect there is probable slightly more dilation of the ventricles as compared to the amount of cortical atrophy. We will review with neuroradiologist. * 2-D echo revealed moderately increased left ventricular wall thickness. Left- ventricular cavity size is normal. Abnormal/paradoxical septal motion consistent with postoperative state. EF is normal 55-60%. Mildly increased left atrial volume. No embolic source. * Carotid Doppler revealed calcified plaquing within the carotid pulse. No significant flow limiting stenosis bilateral ICA. Antegrade flow in both vertebral arteries. * Continue aspirin and statin. * B12 pending, folate 17.5. * PT OT, speech therapy. * Patient's family believes that patient has fluctuating mental status, sometimes he is more clear, other times more confused. We will check EEG to rule out any epileptiform activity. * Optimize control of blood pressure. * Dr. Ricco Simon starting neurology service from the morning. Discussed with patient's daughters and the son.
[2023-07-17 21:15] LABS: Glucose,Whole Blood 151 mg/dL (70-110)
[2023-07-17] MEDS: PSYLLIUM HUSK 100% 6 GM PACKET PO SCH (21:22)
[2023-07-17] MEDS: FAMOTIDINE 20 MG TAB PO SCH (21:23)
[2023-07-17] MEDS: ATORVASTATIN 20 MG TAB PO SCH (21:23)
[2023-07-17 23:15] VITALS: TEMP 98.7
[2023-07-17] MEDS: TOBRAMYCIN 0.3% OPHTH DROPS 5 ML BTL RIGHT EYE SCH (23:20)
[2023-07-18] MEDS: carvediloL 12.5 MG TAB PO SCH ×2 (06:33→16:31)
[2023-07-18] MEDS: LIDOCAINE 4% PATCH TOPICAL SCH (09:01)
[2023-07-18] MEDS: HEPARIN SODIUM,PORCINE 5,000 UNIT/ML 1 ML VIAL SQ SCH ×2 (09:02→20:17)
[2023-07-18] MEDS: LACTOBACILLUS ACIDOPHILUS/PECT 1 EACH CAPSULE PO SCH (09:02)
[2023-07-18] MEDS: LOSARTAN 50 MG TAB PO SCH (09:02)
[2023-07-18] MEDS: hydroCHLOROthiazide 25 MG TAB PO SCH (09:02)
[2023-07-18] MEDS: amLODIPine 10 MG TAB PO SCH (09:02)
[2023-07-18] MEDS: PRIMIDONE 50 MG TAB PO SCH (09:02)
[2023-07-18] MEDS: ASPIRIN 81 MG PO SCH (09:02)
[2023-07-18] MEDS: TOBRAMYCIN 0.3% OPHTH DROPS 5 ML BTL RIGHT EYE SCH ×3 (09:03→20:17)
[2023-07-18] MEDS: NON FORMULARY DRUG (Fluorouracil [Efudex] 40 GM Cream..G.) TOPICAL SCH ×2 (09:09→20:17)
[2023-07-18 09:25] LABS: Basophils % (A) 0 %; Eosinophils # (A) 0.2 k/uL (0-0.7); Eosinophils % (A) 2 %; HCT 35.7 % (39.0-53.0); Lymphocytes # (A) 1.2 k/uL (1.0-4.8); Lymphocytes % (A) 16 %; MCH 32.7 pg (25.0-35.0); MCHC 33.5 g/dL (31.0-37.0); MCV 97.7 fL (80.0-100.0); Mean Platelet Volume 9.8; Monocytes # (A) 0.5 k/uL (0-1.0); Monocytes % (A) 6 %; Neutrophils # (A) 5.6 k/uL (1.3-7.7); Neutrophils % (A) 74 %; Platelet Count 189 k/uL (150-450); RBC 3.66 m/uL (4.30-5.90); RDW 12.5 % (11.5-15.5); WBC 7.6 k/uL (3.8-10.6)
[2023-07-18 09:49] LABS: African American GFR (CKD) 80 (>60 ml/min/1.73 sqM); Anion Gap 9 mmol/L; Blood Urea Nitrogen 24 mg/dL (9-20); Calcium 8.8 mg/dL (8.4-10.2); Carbon Dioxide 23 mmol/L (22-30); Chloride 103 mmol/L (98-107); Glucose 132 mg/dL (74-99); Non-African American GFR(CKD) 69 (>60 ml/min/1.73 sqM); Potassium 3.9 mmol/L (3.5-5.1); Sodium 135 mmol/L (137-145)
--- NOTE | 2023-07-18 14:40 | P.PN ---
Subjective Progress Note Date: 07/18/23 The patient is a pleasant 87-year-old gentleman with coronary artery disease and hypertension and dyslipidemia was admitted to the hospital was hypertension emergency. He was seen and evaluated this morning. He continues to be hypertensive. Currently is on high-dose losartan which is maximum dose and also he is on atenolol. I'm going to add hydrocortisone to the current medical regimen his kidney function are within normal limits. Beside that he has been experiencing dysuria. I asked for a urology consult to rule out any obstructive uropathy and he might benefit from medications for that. No pain in the chest and no shortness of breath. He is experiencing mild headache likely secondary to hypertension. 07/17 Patient is waiting for MRI of the brain today. Blood pressure readings have b een elevated patient is on atenolol which will be changed to Coreg. 07/18 Yesterday patient underwent MRI of the brain that did not show any acute findings. Blood pressure this morning remains elevated 187/96. Patient states that he is doing okay today. He is well this morning. Plan is for rehab. The examination is remarkable for distant heart sounds with clear breathing sounds bilaterally and no lower extremity edema noted Assessment Hypertension emergency Coronary artery disease Multiple comorbid conditions Plan Continue current antihypertensive medications: Norvasc 10 mg daily, Coreg 12.5 mg twice daily, hydrochlorothiazide 25 mg daily, losartan 100 mg daily. No plan to adjust medications today due to patient's frail nature and blood pressure will gradually improve Cardiology will sign off this case and follow on an as-needed basis. Please reconsult for any new concerns. Patient may follow-up in the office in one to 2 weeks. Nurse practitioner note has been reviewed, I agree with the documented findings and plan of care. Patient was seen and examined. Objective - Vital Signs Vital signs: Vital Signs Temp 98.7 F 07/17/23 20:00 Pulse 80 07/18/23 04:00 Resp 18 07/18/23 04:00 BP 187/96 07/18/23 04:00 Pulse Ox 98 07/18/23 04:00 FiO2 Intake & Output 07/17/23 07/18/23 07/18/23 18:59 06:59 18:59 Intake Total 120 Output Total 600 Balance 120 -600 Intake: Oral 120 Output: Urine 600 Other: Voiding Method Incontinent Incontinent External Catheter External Catheter - Labs CBC & Chem 7: 07/18/23 07:51 07/18/23 07:51 Labs: Abnormal Lab Results - Last 24 Hours (Table) 07/17/23 07/18/23 Range/Units 21:13 07:51 RBC 3.66 L (4.30-5.90) m/uL Hgb 12.0 L (13.0-17.5) gm/dL Hct 35.7 L (39.0-53.0) % POC Glucose (mg/dL) 151 H (70-110) mg/dL Microbiology - Last 24 Hours (Table) 07/14/23 16:15 Blood Culture - Preliminary Blood 07/14/23 16:49 Urine Culture - Final Urine,Voided
--- NOTE | 2023-07-18 17:08 | P.PN ---
Subjective Progress Note Date: 07/18/23 I am seeing the patient for the first time during this admission. Please refer to Dr. Blackwell's notes for further details. She is accompanied with his 2 daughters were at bedside. It seems that the patient resides by himself and according to the daughter's he's functional and has a mild confusion at baseline but he is compliant functional able to feed himself, has a normal conversation. She walks with a walker at baseline. But in the last 2 weeks and half he had significant decline in mentation. Patient feels he is doing well today.He has underlying head/jaw tremor per daughter and is on Primidone. Objective - Vital Signs Vital signs: Vital Signs Temp 98.7 F 07/17/23 20:00 Pulse 80 07/18/23 04:00 Resp 18 07/18/23 04:00 BP 187/96 07/18/23 04:00 Pulse Ox 98 07/18/23 04:00 FiO2 Intake & Output 07/17/23 07/18/23 07/18/23 18:59 06:59 18:59 Intake Total 120 Output Total 600 750 Balance 120 -600 -750 Weight 90.718 kg Intake: Oral 120 Output: Urine 600 750 Other: Voiding Method Incontinent Incontinent External Catheter External Catheter - Exam General: Lying in bed and is not in acute distress. Neuro: Limited because his overall cooperation. Patient is awake alert oriented to self. He stated that he is here for colonoscopy. He's able to name watch and glasses. He followed very few simple commands after multiple repetition. No facial weakness. He is very hard of hearing Motor: Strength is very hard to assess because his cooperation but he was able to lift the bilateral upper extremity above gravity briefly. - Labs CBC & Chem 7: 07/18/23 07:51 07/18/23 07:51 Labs: Abnormal Lab Results - Last 24 Hours (Table) 07/17/23 07/18/23 07/18/23 Range/Units 21:13 07:51 07:51 RBC 3.66 L (4.30-5.90) m/uL Hgb 12.0 L (13.0-17.5) gm/dL Hct 35.7 L (39.0-53.0) % Sodium 135 L (137-145) mmol/L BUN 24 H (9-20) mg/dL Glucose 132 H (74-99) mg/dL POC Glucose (mg/dL) 151 H (70-110) mg/dL Microbiology - Last 24 Hours (Table) 07/14/23 16:15 Blood Culture - Preliminary Blood 07/14/23 16:49 Urine Culture - Final Urine,Voided Assessment and Plan Assessment: * 2 week history of generalized decline, with not performing ADLs, not talking much, or eating and incontinence. Examination reveals some psychomotor slowing and right facial droop. No MRI evidence of stroke. * Abnormal brain scan, with evidence of possible mild hydrocephalus. Patient has couple years history of gait imbalance with falls, and more recent onset of urinary incontinence. Rule out NPH. * Recent UTI, treated with cephalexin * Hypertensive urgency * Hypertension * Hard of hearing * History of tremors, currently on primidone. Patient's tremor is more at rest, suggestive of possible parkinsonism. Plan: * MRI of the brain revealed no evidence of intracranial mass, acute/subacute infarct. Nonspecific white matter changes, likely secondary to small vessel ischemic disease. Dilation of the ventricles in proportion to cerebral atrophy. Per Dr. Blackwell review, and suspect there is probable slightly more dilation of the ventricles as compared to the amount of cortical atrophy. Personally reviewed the MRI and I agree there is slight more dilation of the ventricles compared to the cortical atrophy. I spoke with the patient's daughters regarding this but they're not interested in any intervention or escalation of care especially at his age. * 2-D echo revealed moderately increased left ventricular wall thickness. Left- ventricular cavity size is normal. Abnormal/paradoxical septal motion c onsistent with postoperative state. EF is normal 55-60%. Mildly increased left atrial volume. No embolic source. * Carotid Doppler revealed calcified plaquing within the carotid pulse. No significant flow limiting stenosis bilateral ICA. Antegrade flow in both vertebral arteries. * Continue aspirin and statin. * B12 pending, folate 17.5. * PT OT, speech therapy. * Preliminary EEG: Preliminary Is limited because of myogenic artifact. Had tremor/chewing movement during study. There is some sharp activity over the left temporal but again this was a limited because of myogenic artifact. There is no clear seizure. I updated the daughters and the day and agreed to repeat the EEG tomorrow and if this continues to show sharply contoured activity then we'll consider him being on medications. * Optimize control of blood pressure. * We'll defer the rest of the medical measure the primary team. Will continue to follow. Time with Patient: Less than 30
--- NOTE | 2023-07-18 18:41 | P.PN ---
Subjective Progress Note Date: 07/18/23 Patient evaluated today resting in bed with family members at the bedside. He is alert x 3 continues with moments of confusion per family he is not yet back to baseline. He is being followed closely by neurology underwent brain MRI with no acute findings and no mention of NPH. He underwent an EEG today. He was evaluated by urology and cleared no further recommendations regarding the urinary incontinence. Additionally he was evaluated by ID and ruled out underlying infectious process. Sodium today 135, potassium 3.9, BUN 24, creatinine 0.98. Lipid panel unremarkable. Review of Systems Constitutional: Denied any fatigue denied any fever. Cardio vascular: denied any chest pain, palpitations Gastrointestinal: denied any nausea, vomiting, diarrhea Pulmonary: Denied any shortness of breath cough Neurologic denied any new focal deficits All inpatient medications were reviewed and appropriate changes in these medications as dictated in the interval history and assessment and plan. PHYSICAL EXAMINATION: GENERAL: The patient is alert and oriented x3, not in any acute distress. Well developed, well nourished. HEENT: Pupils are round and equally reacting to light. EOMI. No scleral icterus. No conjunctival pallor. Normocephalic, atraumatic. No pharyngeal erythema. No thyromegaly. CARDIOVASCULAR: S1 and S2 present. No murmurs, rubs, or gallops. PULMONARY: Chest is clear to auscultation, no wheezing or crackles. ABDOMEN: Soft, nontender, nondistended, normoactive bowel sounds. No palpable organomegaly. MUSCULOSKELETAL: No joint swelling or deformity. EXTREMITIES: No cyanosis, clubbing, or pedal edema. NEUROLOGICAL: Gross neurological examination did not reveal any focal deficits. SKIN: No rashes. Assessment -Altered mental status due to acute hypertensive encephalopathy improved but not back to baseline -Hypertension with urgency on admission followed by cardiology further adjustments have been pt now on carvedilol with discontinuation of atenolol. Cardiology has signed off to continue with current regimen and see in the office. -Troponin elevation from the hypertension. -Hyperglycemia A1C 6.0 consistent with pre-diabetes recommending oral hypoglycemic agent like metformin on discharge and dietary modifications Rule out underlying vascular dementia needs outpatient work up with neurology this was discussed with family at the bedside. Patient has been having progr essive weakness and issues with urinary incontinence. Mention of NPH on brain CT which was not evidence on follow up brain MRI. If concern for NPH on follow up evaluation patient would need to see neurosurgery outpatient -History of skin cancer -Coronary artery disease -Generalized weakness patient has been seen by PT/OT recommendations made for subacute rehab and social work is following. GI prophylaxis DVT prophylaxis Do Not Resuscitate, Do Not Intubate Discharge to rehab in the next 24 hours. The impression and plan of care has been dictated by Darcie Muhammad, Nurse Practitioner as directed. Dr. Brendon MD I have performed a history and physical examination and medical decision making of this patient, discussed the same with the dictator, and agree with the dictators assessment and plan as written, documented as a scribe. Based on total visit time, I have performed more than 50% of this visit. Objective - Vital Signs Vital signs: Vital Signs Temp 98.7 F 07/17/23 20:00 Pulse 80 07/18/23 04:00 Resp 18 07/18/23 04:00 BP 187/96 07/18/23 04:00 Pulse Ox 98 07/18/23 04:00 FiO2 Intake & Output 07/17/23 07/18/23 07/18/23 18:59 06:59 18:59 Intake Total 120 Output Total 600 Balance 120 -600 Intake: Oral 120 Output: Urine 600 Other: Voiding Method Incontinent Incontinent External Catheter External Catheter - Labs CBC & Chem 7: 07/18/23 07:51 07/18/23 07:51 Labs: Abnormal Lab Results - Last 24 Hours (Table) 07/17/23 07/18/23 Range/Units 21:13 07:51 RBC 3.66 L (4.30-5.90) m/uL Hgb 12.0 L (13.0-17.5) gm/dL Hct 35.7 L (39.0-53.0) % POC Glucose (mg/dL) 151 H (70-110) mg/dL Microbiology - Last 24 Hours (Table) 07/14/23 16:15 Blood Culture - Preliminary Blood 07/14/23 16:49 Urine Culture - Final Urine,Voided Assessment and Plan Time with Patient: Less than 30
[2023-07-18] MEDS: ATORVASTATIN 20 MG TAB PO SCH (20:16)
[2023-07-18] MEDS: FAMOTIDINE 20 MG TAB PO SCH (20:16)
[2023-07-18] MEDS: PSYLLIUM HUSK 100% 6 GM PACKET PO SCH (20:16)
[2023-07-18] MEDS ORDERED: IPRATROPIUM-ALBUTEROL 3 ML NEB INHALATION PRN (23:49)
[2023-07-19] MEDS ORDERED: guaiFENesin SYRUP 100MG/5ML 200 MG/10 ML CUP PO PRN
[2023-07-19] MEDS: carvediloL 12.5 MG TAB PO SCH (06:26)
[2023-07-19] MEDS: IPRATROPIUM-ALBUTEROL 3 ML NEB INHALATION SCH ×3 (08:26→15:20)
--- NOTE | 2023-07-19 08:38 | EEG ---
ELECTROENCEPHALOGRAM REPORT CLINICAL HISTORY: This is an 87-year-old gentleman with altered mental status that is fluctuating. The video EEG is obtained to evaluate for seizure epileptiform activity. The patient is not on any antiepileptic drugs. EEG TYPE: A routine 21-channel EEG with video using the 10/20 electrode placement system. DESCRIPTION: Wakefulness and drowsiness obtained. During awake state, the background consists of [id number] voltage of 8 hertz activity. There is no physiological stage 2 sleep architecture. There is no focal slowing. There is moderate amount of myogenic artifact over the left temporal more than left central region during the study. Interictal and ictal is somewhat obscured because of myogenic artifact over the left hemisphere, predominantly in left temporal, but there appears to be sharply contoured activity over the left temporal region. Clinically, patient has tremor of face, chewing movement. There is no seizures. Activation procedure: photic stimulation and hyperventilation are not performed. CLINICAL INTERPRETATION: This is an abnormal routine EEG. There is limitation of the study because of myogenic artifact. There appears to be sharply contoured activity over the left confucianist, but it seems obscured because of myogenic artifact. Otherwise, no clear seizure. The background is normal. Clinical correlation is recommended. MMODL / IJN: [id number] / MICHAEL
[2023-07-19] MEDS: hydroCHLOROthiazide 25 MG TAB PO SCH (09:18)
[2023-07-19] MEDS: LACTOBACILLUS ACIDOPHILUS/PECT 1 EACH CAPSULE PO SCH (09:18)
[2023-07-19] MEDS: PRIMIDONE 50 MG TAB PO SCH (09:18)
[2023-07-19] MEDS: amLODIPine 10 MG TAB PO SCH (09:18)
[2023-07-19] MEDS: LOSARTAN 50 MG TAB PO SCH (09:18)
[2023-07-19] MEDS: LIDOCAINE 4% PATCH TOPICAL SCH (09:18)
[2023-07-19] MEDS: ASPIRIN 81 MG PO SCH (09:18)
[2023-07-19] MEDS: HEPARIN SODIUM,PORCINE 5,000 UNIT/ML 1 ML VIAL SQ SCH (09:18)
[2023-07-19] MEDS: TOBRAMYCIN 0.3% OPHTH DROPS 5 ML BTL RIGHT EYE SCH (09:19)
[2023-07-19 09:38] VITALS: BP 113/61; RESP 16
[2023-07-19] MEDS: NON FORMULARY DRUG (Fluorouracil [Efudex] 40 GM Cream..G.) TOPICAL SCH (11:45)
[2023-07-19 11:47] VITALS: PULSE 82
--- NOTE | 2023-07-19 12:51 | P.PN ---
Subjective Progress Note Date: 07/19/23 I am following-up seen the patient and he is accompanied with his daughter and his son-in-law. According to the family members he seems to be doing better today compared to yesterday or initial presentation. He has drastic improvement in tremor of face/tremor or clenching of jaw. The patient feels she is doing well. Per family members, patient initially started with tremor with action then lead to resting tremor. But currently no tremor of extremities. Objective - Vital Signs Vital signs: Vital Signs Temp 98.7 F 07/17/23 20:00 Pulse 82 07/19/23 11:40 Resp 16 07/19/23 08:00 BP 113/61 07/19/23 08:00 Pulse Ox 96 07/19/23 08:00 FiO2 Intake & Output 07/18/23 07/19/23 07/19/23 18:59 06:59 18:59 Intake Total 180 Output Total 750 650 Balance -750 -650 180 Weight 90.718 kg Intake: Oral 180 Output: Urine 750 650 Other: Voiding Method Incontinent Incontinent External Catheter External Catheter - Exam General: Lying in bed and is not in acute distress. Neuro: Limited because his overall cooperation. Patient is awake alert oriented to self and stated he is in the hospital. He followed very few simple commands after few repetition. No facial weakness. He is very hard of hearing Motor: Strength is very hard to assess because his cooperation but he was able to lift the bilateral upper extremity above gravity briefly and wiggled his toes symmetrically. No resting tremor or tremor to action. - Labs CBC & Chem 7: 07/18/23 07:51 07/18/23 07:51 Assessment and Plan Assessment: * 2 week history of generalized decline, with not performing ADLs, not talking much, or eating and incontinence. Examination reveals some psychomotor slowing and right facial droop. No MRI evidence of stroke--per family members he is doing better today. * Abnormal brain scan, with evidence of possible mild hydrocephalus. Patient has couple years history of gait imbalance with falls, and more recent onset of urinary incontinence. Rule out NPH. * Recent UTI, treated with cephalexin * Hypertensive urgency * Hypertension * Hard of hearing * History of tremors, currently on primidone. Patient's tremor is more at rest, suggestive of possible parkinsonism. Plan: * MRI of the brain revealed no evidence of intracranial mass, acute/subacute infarct. Nonspecific white matter changes, likely secondary to small vessel ischemic disease. Dilation of the ventricles in proportion to cerebral atrophy. Per Dr. Blackwell review, and suspect there is probable slightly more dilation of the ventricles as compared to the amount of cortical atrophy. Personally reviewed the MRI and I agree there is slight more dilation of the ventricles compared to the cortical atrophy. I spoke with the patient's daughters regarding this but they're not interested in any intervention or escalation of care especially at his age. * 2-D echo revealed moderately increased left ventricular wall thickness. Left- ventricular cavity size is normal. Abnormal/paradoxical septal motion consistent with postoperative state. EF is normal 55-60%. Mildly increased left atrial volume. No embolic source. * Carotid Doppler revealed calcified plaquing within the carotid pulse. No significant flow limiting stenosis bilateral ICA. Antegrade flow in both vertebral arteries. * Continue aspirin and statin. * B12 471 folate 17.5. * PT OT, speech therapy. * EEG on 07/18/2023: Preliminary Is limited because of myogenic artifact. Had tremor/chewing movement during study. There is some sharp activity over the left temporal but again this was a limited because of myogenic artifact. There is no clear seizure. I updated the daughters and the day and agreed to repeat the EEG tomorrow and if this continues to show sharply contoured activity then we'll consider him being on medications. * Repeat EEG on 07/19/23 Preliminary report: No seizure or discharges. * Because of repeated EEG does not show any evidence of discharges or any sharp activity, will hold starting antiepileptic drugs If patient continues to have worsening confusion down the line, then recommend consideration of repeating EEG. Per family patient is doing better today. * Optimize control of blood pressure. * We'll defer the rest of the medical measure the primary team. * Recommend the patient to follow-up with neurologist as outpatient within 2-3 weeks. The plan is discussed with patient's daughter and N.P. from primary team. There is no further neurological work-up. Time with Patient: Less than 30
--- NOTE | 2023-07-19 13:37 | P.DS ---
Providers Date of admission: 07/14/23 16:51 Attending physician: Gonzalez Salazar Consults: 07/14/23 15:56 Consult Physician Routine Consulting Provider: Mendoza Connor Consult Reason/Comments: high trops Do you want consulting provider notified?: Yes 07/15/23 13:17 Consult Physician Routine Consulting Provider: Flores Rogers Consult Reason/Comments: cellulitis Do you want consulting provider notified?: Yes 07/15/23 13:21 Consult Physician Routine Consulting Provider: Cachorro Blackwell Consult Reason/Comments: dementia?? Do you want consulting provider notified?: Yes 07/16/23 08:57 Consult Physician Routine Consulting Provider: Dar Lopez Consult Reason/Comments: difficulty urinating Do you want consulting provider notified?: Yes Primary care physician: Harini Teixeira Hospital Course: Final Diagnosis -Altered mental status due to acute hypertensive encephalopathy, improved -Hypertension with urgency on admission followed by cardiology further adjustments have been pt now on carvedilol with discontinuation of atenolol. -Troponin elevation from the hypertension. -Hyperglycemia A1C 6.0 consistent with pre-diabetes -History of skin cancer -Coronary artery disease with previous CABG -Hyperlipidemia -Generalized weakness -Hx of tremors on primidone Do Not Resuscitate/Do Not Intubate Discharge Disposition. Patient is stable for discharge to subacute rehab. Cardiology has signed off to continue with current regimen and see in the office. Recommending oral hypoglycemic agent like metformin on discharge and dietary modifications. Rule out underlying vascular dementia needs outpatient work up with neurology this was discussed with family at the bedside. Patient has been having progressive weakness and issues with urinary incontinence. Mention of NPH on brain CT which was not evidence on follow up brain MRI. If concern for NPH on follow up evaluation patient would need to see neurosurgery outpatient. Patient recommended to follow-up with neurology in 1-2 weeks of discharge. Follow-up with PCP. Hospital Course This is a 87-year-old male with a past medical history significant for coronary artery disease with previous CABG, hypertension, and hyperlipidemia. Daughter states over the past few weeks he has significantly deteriorated. He was recently treated outpatient for UTI. She reports that he has had significant weakness and has been unable to ambulate at home. She also reports that he has not been eating well at home. Brought in to the hospital for further evaluation. He was found to have hypertension with urgency elevated to 200s systolic on admission. Cardiology was consulted. 2-D echo revealed moderately increased left ventricular wall thickness. Left-ventricular cavity size is normal. Abnormal/paradoxical septal motion consistent with postoperative state. EF is normal 55-60%. Mildly increased left atrial volume. No embolic source. Cardiology adjusted medications taken off atenolol and started on carvedilol and amlodipine. No fever or chills, no shortness of breath no chest pain. Neurology was also consulted for evaluation. CT head revealed no acute bleed or mass effect. Moderate generalized atrophy and moderate chronic ischemic white matter demyelination. Carotid Doppler revealed calcified plaquing within the carotid pulse. No significant flow limiting stenosis bilateral ICA. Antegrade flow in both vertebral arteries. Underwent brain MRI with no acute findings and no mention of NPH. He was evaluated by urology and cleared no further recommendations regarding the urinary incontinence. Additionally he was evaluated by ID and ruled out underlying infectious process. Sodium today 135, potassium 3.9, BUN 24, creatinine 0.98. Lipid panel unremarkable. To finish the neurology consultation he underwent an EEG limited because of myogenic artifact. Had tremor/chewing movement during study. There is some sharp activity over the left temporal but again this was a limited because of myogenic artifact. There is no clear seizure. He then went follow up EEG which reveals no seizure like activity and neurology will hold off on starting antiseizure medications. His mentation has improved. He would benefit from neurology evaluation output for further evaluation. Please see medication reconciliation for a list of current medication. Thank you for allowing us to participate in the care of this patient. The impression and plan of care has been dictated by Darcie Muhammad, Nurse Practitioner as directed. Dr. Brendon MD I have performed a history and physical examination and medical decision making of this patient, discussed the same with the dictator, and agree with the dictators assessment and plan as written, documented as a scribe. Based on total visit time, I have performed more than 50% of this visit. Patient Condition at Discharge: Fair Plan - Discharge Summary Discharge Rx Participant: No New Discharge Prescriptions: New carvediloL [Coreg*] 12.5 mg PO BID-W/MEALS tab Lidocaine 4% Patch 1 patch TOPICAL DAILY patch guaiFENesin SYRUP 100MG/5ML [Robitussin] 200 mg PO Q6HR PRN ml PRN Reason: Cough hydroCHLOROthiazide [Hydrodiuril] 25 mg PO DAILY #30 tab amLODIPine [Norvasc] 10 mg PO DAILY tab Continue Aspirin EC [Ecotrin Low Dose] 81 mg PO DAILY Famotidine 20 mg PO BID fluorouraciL [Efudex] 1 applic TOPICAL BID Primidone [Mysoline] 100 mg PO DAILY Simvastatin [Zocor] 40 mg PO HS Bifidobacterium Infantis [Align] 4 mg PO DAILY Losartan Potassium 100 mg PO DAILY Psyllium Husk [Fiber Capsule] 0.4 gm PO HS Discontinued atenoloL [Tenormin] 50 mg PO DAILY Cephalexin [Keflex] 500 mg PO BID Discharge Medication List Aspirin EC [Ecotrin Low Dose] 81 mg PO DAILY 07/14/23 [History] Bifidobacterium Infantis [Align] 4 mg PO DAILY 07/14/23 [History] Famotidine 20 mg PO BID 07/14/23 [History] Losartan Potassium 100 mg PO DAILY 07/14/23 [History] Primidone [Mysoline] 100 mg PO DAILY 07/14/23 [History] Psyllium Husk [Fiber Capsule] 0.4 gm PO HS 07/14/23 [History] Simvastatin [Zocor] 40 mg PO HS 07/14/23 [History] fluorouraciL [Efudex] 1 applic TOPICAL BID 07/14/23 [History] Lidocaine 4% Patch 1 patch TOPICAL DAILY patch 07/19/23 [Rx] amLODIPine [Norvasc] 10 mg PO DAILY tab 07/19/23 [Rx] carvediloL [Coreg*] 12.5 mg PO BID-W/MEALS tab 07/19/23 [Rx] guaiFENesin SYRUP 100MG/5ML [Robitussin] 200 mg PO Q6HR PRN ml 07/19/23 [Rx] hydroCHLOROthiazide [Hydrodiuril] 25 mg PO DAILY #30 tab 07/19/23 [Rx] Follow up Appointment(s)/Referral(s): Cassie Tan MD [STAFF PHYSICIAN] - 1 Week Harini Teixeira MD [Primary Care Provider] - 1-2 Days Abdulaziz Dumont MD [STAFF PHYSICIAN] - 1-2 Days Shola Lora MD [Medical Doctor] - 1 Week Ambulatory/Diagnostic Orders: Basic Metabolic Panel [LAB.AMB] Time Frame: 3 Days, Location: None Selected Complete Blood Count w/diff [LAB.AMB] Location: None Selected Activity/Diet/Wound Care/Special Instructions: Needs to follow up with neurology outpatient in 1 to 2 weeks. Discharge Disposition: TRANSFER TO SNF/ECF
--- NOTE | 2023-07-20 01:05 | EEG ---
ELECTROENCEPHALOGRAM REPORT CLINICAL HISTORY: This is an 87-year-old gentleman with altered mental status. The video EEG is obtained to evaluate for seizure epileptiform activity. RELEVANT MEDICATION: The patient is not on any antiepileptic drugs. EEG TYPE: A routine 21-channel EEG with video using the 10/20 electrode placement system. DESCRIPTION: Wakefulness is only obtained. During the awake state, the background consists of low voltage of 6-7 hertz activity. There is no physiological stage 2 sleep architecture. There is no focal slowing. There is [id number] myogenic artifact over the left more than the right hemisphere. Interictal and ictal is none. ACTIVATION PROCEDURE: Photic stimulation and hyperventilation is not performed. CLINICAL INTERPRETATION: This is an abnormal routine EEG. The background slowing is suggestive of mild encephalopathy. Otherwise, there is no focal slowing, epileptiform discharge, or seizure on the EEG. Clinical correlation is recommended. JEN / GLYNN: [id number] / MTDD
== END 2023-07-19 16:03 | DRG 78 ==
LOC: EC 13:42 → 3SCARD 16:51
PROVIDERS: ADMIT Hospitalist; ATTEND Hospitalist
DX: I67.4 Hypertensive encephalopathy (principal); G91.9 Hydrocephalus, unspecified; N39.0 Urinary tract infection, site not specified; F03.90 Unspecified dementia, unspecified severity, without behavioral disturbance, psychotic disturbance, mood disturbance, and anxiety; E11.65 Type 2 diabetes mellitus with hyperglycemia; E78.5 Hyperlipidemia, unspecified; E86.0 Dehydration; C44.90 Unspecified malignant neoplasm of skin, unspecified; I16.0 Hypertensive urgency; Z66 Do not resuscitate; I10 Essential (primary) hypertension; I25.10 Atherosclerotic heart disease of native coronary artery without angina pectoris; S40.021A Contusion of right upper arm, initial encounter; S40.022A Contusion of left upper arm, initial encounter; I08.1 Rheumatic disorders of both mitral and tricuspid valves; R25.1 Tremor, unspecified; R32 Unspecified urinary incontinence; R29.810 Facial weakness; R29.6 Repeated falls; R26.9 Unspecified abnormalities of gait and mobility; H91.90 Unspecified hearing loss, unspecified ear; R79.89 Other specified abnormal findings of blood chemistry; Z79.82 Long term (current) use of aspirin; Z79.899 Other long term (current) drug therapy; Z95.1 Presence of aortocoronary bypass graft; Z91.81 History of falling; Z85.828 Personal history of other malignant neoplasm of skin; Z82.49 Family history of ischemic heart disease and other diseases of the circulatory system
CPT/HCPCS: 36415; 70450; 70551; 71045; 71046; 80048; 80053; 80061; 81001; 82607; 82746; 83036; 83605; 83735; 84439; 84443; 84481; 84484; 85025; 85610; 85730; 87040; 87086; 93005; 93306; 93880; 94640; 95816; 96361; 96372; 96374; 96376; 99285